=== PATIENT | female | born 1950 | race Caucasian/White ===

== ENCOUNTER 2025-06-01 14:04 | Inpatient (IN) ==
--- NOTE | 2025-06-01 14:11 | Emergency Department Note ---
Impression & Plan New onset atrial fibrillation, Atrial fibrillation with rapid ventricular response ED Provider Note NAME: GARY VELOZ AGE: 75 SEX: F : 1950 ARRIVES VIA: Ambulance INFORMANT: Patient, EMS ED PROVIDER(S): Priyank Marvin DO CHIEF COMPLAINT: palpitations HPI: This is a 75-year-old female with the PMHx of prediabetes, TR, anxiety/depression, HTN and HLD presenting to [facility] for further evaluation of new onset atrial fibrillation. Patient is accompanied by EMS who provide additional history. patient was discussed with EMS and prehospital medical commands by me. Patient was at her PCPs office for follow-up. Was having generalized fatigue and weakness as well as palpitations. Patient had an EKG that showed new onset atrial fibrillation with RVR. EMS was initially on use. She was given IV fluid resuscitation she was also ordered IV Cardizem push by me under medical command. Patient has remained hemodynamically stable and has subsequently converted to normal sinus rhythm per minute. EMS. She states she is feeling improved. Patient reports that she fell at the beginning of May. Patient reports that she did strike her knees and her right shoulder as well as her head. She has had ongoing headaches. Reports that she has ongoing right shoulder pain. States that she has a follow-up appointment with orthopedic surgery for tomorrow. They deny fever or chills. No cough or congestion. Denies chest pain. No shortness of breath. They deny abdominal pain, nausea and vomiting. No urinary complaints. No recent changes in bowel movements. Patient denies recent changes in medications or OTC supplements. Patient offers no other complaints, today. ADDITIONAL HISTORY OBTAINED: Per HPI Chronic Medical/Social Conditions Affecting Care: Per HPI PAST MEDICAL HISTORY: See Below PAST SURGICAL HISTORY: See Below FAMILY HISTORY: See Below SOCIAL HISTORY: See Below HOME MEDICATIONS: See Below ALLERGIES: See Below VITALS: See Below PHYSICAL EXAMINATION: GENERAL: Sitting up in bed, alert, well appearing, well nourished, no distress, non-toxic EYE EXAM: normal conjunctiva. PERRL and EOM's grossly intact. OROPHARYNX: no exudate, no erythema, lips, buccal mucosa, and tongue normal and mucous membranes are moist NECK: supple, no nuchal rigidity, no adenopathy, non-tender LUNGS: Clear to auscultation. Normal chest wall mechanics HEART: no murmurs, regular rate, regular rhythm ABDOMEN: abdomen soft, non-tender, no masses, no rebound or guarding. BACK: Back is symmetrical on inspection and there is no deformity, no midline tenderness, no CVA tenderness. SKIN: no rashes and no bruising UPPER EXTREMITIES: upper extremities are grossly normal. LOWER EXTREMITIES: No pitting edema. NEURO EXAM: Normal sensorium, GCS 15, normal speech, no gross weakness of arms, no gross weakness of legs. MEDICAL DECISION MAKING: Differential diagnoses includes but not limited to new onset atrial fibrillation, dysuria, ACS, electrolyte derangements, dehydration, intracranial hemorrhage, skull fracture, fracture, dislocation In summary, this is a 75 year old female who presented with new onset afib. Differential as above. Nursing notes and pertinent past medical records reviewed. Vital signs reviewed and the patient is mildly hypertensive but otherwise afebrile and hemodynamically stable. History and presentation revealed new onset atrial fibrillation without significant history. I personally took prehospital medical command on this patient. Patient had chest palpitations with lightheadedness. Was at her primary care office when she was diagnosed with new onset atrial fibrillation with RVR. Initial prehospital EKG independently interpreted by me reveals narrow complex tachycardia consistent with atrial fibrillation with RVR at a rate of [address] segment changes noted. No significant ST segment changes to suggest STEMI. Patient was given IV push 15 mg of Cardizem under my medical command. Patient subsequently converted to normal sinus rhythm. Second prehospital EKG reveals a normal sinus rhythm at a ventricular rate of [address] segment changes to suggest STEMI. Physical examination revealed no evidence of significant hypervolemia to suggest CHF. As a result of my initial evaluation, patient has new onset atrial fibrillation. [id number] scoring is 3 points. Will initiate anticoagulation. Apixaban will be sent to the patient's pharmacy for orourke check. Plan for laboratory evaluation as well as x-rays. Patient fell at the beginning of May. Still having ongoing headache as well as right shoulder pain. Dedicated plain films ordered as well as CT head. IV access was established and the patient was placed on CCRM. Therapeutics ordered include IVFR and PO Cardizem. Diagnostics interpreted by me include EKG and cardiac monitoring as listed below: -Cardiac Monitoring: An order was placed for continuous cardiac monitoring. The monitor shows a rate of 60-150s with irregular rhythm. -ECG: Normal sinus rhythm at a ventricular rate of 67 bpm. Sinus arrhythmia present. No significant ST segment changes to suggest STEMI. Intervals are within normal limits. -Repeat ECG: Atrial fibrillation at 98 bpm. No significant particular ST segment changes to suggest STEMI. Patient completed laboratory studies and imaging. CXR independently interpreted by me reveals no evidence of focal consolidation to suggest pna. No large pneumothorax or pleural effusion. No obvious displaced rib fracture. CTH independently interpreted by me reveals no evidence of ICH. No significant hydrocephalus. No major skull fractures. CTH does not demonstrate findings to suggest an etiology of the patient's symptoms or presentation, today. Plain films of the shoulder are unremarkable. Results independently interpreted by me are no leukocytosis or anemia. There is no significant electrolyte derangements or significant kidney dysfunction from baseline. No changes in LFTs. Normal troponin. She is euthyroid. The patient was managed with IVFR and Cardizem PO. She remained in NSR for the majority of her ED course. I extensive discussion with the patient regarding discharge and medications to include apixaban and Cardizem. Orourke check was performed and should cost the patient $0. [facility] was out of apixaban [facility]. Patient unfortunately went back into atrial fibrillation with RVR prior to discharge. Given second recurrence in the setting of new onset atrial fibrillation will request hospitalist admission. Patient was discussed with [facility] Hospitalist service and accepted for admission under Dr. Jones. Consults/Care Managements Discussions: Per [facility] ER treatment provided: See above Procedures: None Critical Care: None The chart was completed utilizing [employer] Speech voice recognition software. Grammatical errors, random word insertions, pronoun errors, and incomplete sentences are an occasional consequence of this system due to software limitations, ambient noise, and hardware issues. Any formal questions or concerns about the content, text, or information contained within the body of this dictation should be directly addressed to the physician for clarification. Past Med/Surg History Problem List (Updated 06/01/25 @ 17:31 by Priyank Marvin DO) Atrial fibrillation with rapid ventricular response (Acute) New onset atrial fibrillation (Acute) Social History Smoking Status: Never smoker Preferred Language: Syriac Feels Safe at Home: Yes Allergies Allergies Allergy/AdvReac Type Severity Reaction Status Date / Time No Known Allergies Allergy Mild Unverified 01/10/24 15:53 Home Meds Home Medications Medication Instructions Recorded Confirmed nabumetone 500 mg tablet 500 mg PO BID PRN Pain 06/01/25 06/01/25 rosuvastatin 20 mg tablet 20 mg PO HS 06/01/25 06/01/25 Previous Rx's Medication Instructions Recorded apixaban 5 mg tablet (Eliquis) 5 mg PO BID #60 tabs 06/01/25 diltiazem HCl 30 mg tablet 30 mg PO Q6H #90 tabs 06/01/25 (Cardizem) Results & Data (ED) Vital Signs Vital Signs - 24 hr 06/01/25 14:10 06/01/25 14:10 06/01/25 14:10 Temperature 36.3 C L Temperature Source Oral Pulse Rate 72 Pulse Rate [Apical] Pulse Rhythm [Apical] Pulse Strength [Apical] Respiratory Rate 20 20 Respiratory Effort / Characteristics Non-Labored Respiratory Depth Normal Respiratory Pattern Blood Pressure 184/104 H Blood Pressure [Right Arm] Blood Pressure Mean 130 Blood Pressure Mean [Right Arm] Blood Pressure Position [Right Arm] Pulse Oximetry 98 98 Oxygen Delivery Method Room Air Room Air Sepsis Recent Fever Within 48 Hours No Sepsis New/Unexplained Change in Mental Status Yes Sepsis Action Taken by Nursing No Action Required 06/01/25 14:10 06/01/25 14:20 06/01/25 14:50 Temperature Temperature Source Pulse Rate 69 Pulse Rate [Apical] 68 Pulse Rhythm [Apical] Pulse Strength [Apical] Respiratory Rate 20 Respiratory Effort / Characteristics Non-Labored Respiratory Depth Normal Respiratory Pattern Blood Pressure Blood Pressure [Right Arm] 191/104 H Blood Pressure Mean Blood Pressure Mean [Right Arm] 133 Blood Pressure Position [Right Arm] Pulse Oximetry 98 96 Oxygen Delivery Method Room Air Room Air Sepsis Recent Fever Within 48 Hours Sepsis New/Unexplained Change in Mental Status Sepsis Action Taken by Nursing 06/01/25 15:35 06/01/25 16:28 06/01/25 16:37 Temperature Temperature Source Pulse Rate Pulse Rate [Apical] 63 124 H 112 H Pulse Rhythm [Apical] Regular Irregular Pulse Strength [Apical] Normal Respiratory Rate 20 16 16 Respiratory Effort / Characteristics Non-Labored Respiratory Depth Normal Respiratory Pattern Regular Blood Pressure Blood Pressure [Right Arm] 150/91 H 149/103 H 133/94 Blood Pressure Mean Blood Pressure Mean [Right Arm] 110 118 107 Blood Pressure Position [Right Arm] Lying Pulse Oximetry 96 97 95 Oxygen Delivery Method Room Air Room Air Room Air Sepsis Recent Fever Within 48 Hours Sepsis New/Unexplained Change in Mental Status Sepsis Action Taken by Nursing Laboratory Data 06/01/25 14:30 06/01/25 14:30 Lab Results 06/01/25 Range/Units 14:30 WBC 8.57 (4.8-10.8) K/ul RBC 4.89 (4.20-5.40) M/uL Hgb 14.5 (12.0-16.0) g/dL Hct 43.4 (37.0-47.0) % MCV 88.8 (80.0-100.0) fL MCH 29.7 (25.0-34.0) pg MCHC 33.4 (32.0-36.0) g/dL RDW Std Deviation 41.7 (36.4-46.3) fL RDW Coeff of Adriano 12.8 (11.5-14.5) % Plt Count 273 (130-400) K/uL MPV 9.3 L (9.4-12.4) fL Immature Gran % (Auto) 0.5 % Neut % (Auto) 61.1 % Lymph % (Auto) 27.5 % [place] % (Auto) 8.2 % Eos % (Auto) 2.2 % Baso % (Auto) 0.5 % Neut # (Auto) 5.24 (1.40-6.50) K/uL Lymph # (Auto) 2.36 (1.20-3.40) K/uL [place] # (Auto) 0.70 H (0.11-0.59) K/uL Eos # (Auto) 0.19 (0.00-0.50) K/uL Baso # (Auto) 0.04 (0.00-0.20) K/uL Immature Gran # (Auto) 0.04 (0.01-0.20) K/uL Sodium 140 (136-145) mmol/L Potassium 4.1 (3.5-5.1) mmol/L Chloride 104 (98-107) mmol/L Carbon Dioxide 29 (21-32) mmol/L Anion Gap 7 (3-11) BUN 16 (6-23) mg/dl Creatinine 0.65 (0.6-1.2) mg/dl Est Cr Clr Drug Dosing 83.8 ml/min eGFR 92.33 BUN/Creatinine Ratio 24.6 H (10-20) Glucose 115 H (70-99(Fasting)) mg/dl Calcium 9.7 (8.6-10.3) mg/dl Magnesium 2.1 (1.7-2.4) mg/dl Total Bilirubin 0.3 (0.2-1.0) mg/dl AST 17 (13-39) U/L ALT 13 (7-52) U/L Alkaline Phosphatase 62 (34-104) U/L Troponin I High Sens 10.9 (0-14) pg/ml Total Protein 7.4 (6.0-8.3) gm/dl Albumin 4.0 (3.4-5.0) gm/dl Globulin 3.4 (2.5-4.0) gm/dl Albumin/Globulin Ratio 1.2 (0.9-2) Lipase 17 (11-82) U/L TSH 1.097 (0.300-4.500) uIu/ml Administered Medications Discontinued Medications Apixaban (Apixaban 5 Mg Tablet) 5 mg PO ONE ONE Stop: 06/01/25 15:52 Last Admin: 06/01/25 16:01 Dose: 5 mg Documented By: lesli Diltiazem HCl (Diltiazem Hcl 30 Mg Tab) 30 mg PO NOW ONE Stop: 06/01/25 14:32 Last Admin: 06/01/25 14:53 Dose: 30 mg Documented By: CYNDIE Diltiazem HCl (Diltiazem Hcl 5 Mg/Ml 5 Ml Vial) 15 mg IV NOW STA Stop: 06/01/25 16:15 Last Admin: 06/01/25 16:16 Dose: 15 mg Documented By: lesli Co-signed By: asm Diltiazem HCl (Diltiazem Hcl 5 Mg/Ml 5 Ml Vial) Confirm Administered Dose 25 mg IV .STK-MED ONE Stop: 06/01/25 16:16 Last Admin: 06/01/25 17:11 Dose: Not Given Documented By: lesli Parenteral Electrolytes (Plasma-Lyte A Ph 7.4) 500 mls @ 999 mls/hr IV .Q31M ONE Stop: 06/01/25 14:36 Last Infusion: 06/01/25 14:49 Dose: Infused Documented By: Admin: 06/01/25 14:21 Dose: 999 mls/hr Documented By: ES Imaging Data Radiologist's Impression: Chest X-Ray 06/01/25 14:06 SINGLE VIEW CHEST CLINICAL HISTORY: Chest pain FINDINGS: An AP, portable, upright chest radiograph is compared to study dated 01/07/2023. The heart is enlarged noting atherosclerotic calcification of the thoracic aorta. The pulmonary vasculature is noncongested. Chronic interstitial thickening similar to previous. There is mild bibasilar atelectasis. The lungs and pleural spaces are otherwise clear. No pneumothorax is seen. The skeletal structures are osteopenic. Degenerative change and scoliosis is noted in the spine. The bony thorax is grossly intact. IMPRESSION: Cardiomegaly with no active disease in the chest. ACT 112: Negative or not required by law. Electronically signed by: Darvin Yost M.D. 06/01/2025 3:[address] 06/01/25 14:18 CT SCAN OF THE BRAIN WITHOUT IV CONTRAST CLINICAL HISTORY: Headache. Falls. COMPARISON STUDY: None. TECHNIQUE: Unenhanced axial CT scan of the brain was performed from the vertex to the skull base. A dose lowering technique was utilized adhering to the principles of ALARA. CT DOSE: 547.75 mGy.cm FINDINGS: Brain parenchyma: No acute intracranial hemorrhage, midline shift or mass effect is present. Rouse-white matter differentiation is preserved. There are no extra- axial fluid collections. There are no findings to suggest acute dural sinus thrombosis or acute territorial infarct. White matter hypodensity suggests small vessel disease. Ventricles, sulci, cisterns: There is no hydrocephalus. The basal cisterns are patent. Calvarium: There are no calvarial fractures. Sinuses and mastoids: The visualized paranasal sinuses are clear. The mastoid air cells are well pneumatized. Orbits: The bony orbits are grossly intact. IMPRESSION: 1. No acute intracranial findings. 2. No calvarial fractures. ACT 112: Negative or not required by law. Electronically signed by: Emilio Flores M.D. 06/01/2025 3:30 PM Shoulder X-Ray 06/01/25 14:18 XR shoulder RT min 2V routine CLINICAL HISTORY: Right shoulder pain following fall. COMPARISON: None FINDINGS: Alignment of the right shoulder is anatomic. There are no acute fractures. Moderate degenerative changes within the acromioclavicular joint are noted with subacromial spurring. There is minimal spurring of the greater tuberosity. There is mild osteophytosis of the glenohumeral joint. IMPRESSION: No fracture or dislocation within the right shoulder. ACT 112: Negative or not required by law. Electronically signed by: Emilio Flores M.D. 06/01/2025 2:53 PM Discharge Plan Visit Data Chief Complaint: Tachycardia Stated Complaint: TACHYCARDIA, HTN ED Provider: Priyank Marvin Discharge Problem: New onset atrial fibrillation, Atrial fibrillation with rapid ventricular response Patient Disposition: Home - Self-Care Condition: Good Discharge Instructions Krames/Other Patient Handouts: Apixaban Oral Tablet, AFib Preventing Stroke, AFib, ED Atrial Fibrillation Activity Restrictions/Additional Instructions: You have been seen and evaluated in the Emergency Department of [facility]. Please read the discharge instructions below regarding your care. Summary Of Today's Visit: You were seen today for new onset atrial fibrillation. This is an abnormal heart rhythm. I need to follow-up with your PCP or auto club safety program coordinator. You are on 2 new medications as below. If you develop chest pain, worsening palpitations, shortness of breath, lower extremity swelling, episodes of passing out or any other symptoms you find alarming, you need to return to the emergency department. You will be on a blood thinner now. You need to be careful when you are walking and avoid all falls. If you fall, you need to report to the emergency department for further evaluation of internal injuries and significant anemia.. New Prescriptions/Medication Changes: Cardizem 30 mg four times daily Eliquis 5 mg daily estimated Follow Up/Continuation Of Care: PCP within [address] [facility] ([place] [address] [place] [address] Appointments: [phone] Operators are available 7 a.m. - 7 p.m. Saturday - Saturday and 7:30 a.m. - 4 p.m. Saturday and Saturday Other Important Information/Return Instructions: Please return if your symptoms worsen. Please return if you develop new and concerning symptoms including but not limited to fevers, chest pain, shortness of breath, altered mental status or any symptom you find alarming. The above instructions were reviewed with the patient/family/parents/POA/wholesale parts salesperson. Thank you for allowing us to care for you. Our goal is to provide you the best care. If you have any emergency needs in the future we will be glad to help you again. We are here to serve you! Priyank Marvin DO Forms Stand Alone Forms: My New [facility], Important Visit Information Prescriptions Prescriptions: New Eliquis 5 mg tablet 5 mg PO BID Qty: 60 0RF diltiazem HCl [Cardizem] 30 mg tablet 30 mg PO Q6H Qty: 90 0RF No Action nabumetone 500 mg tablet 500 mg PO BID PRN (Reason: Pain) rosuvastatin 20 mg tablet 20 mg PO HS Referrals Referrals: Gabriela Hunter DO [Primary Care Provider] -
[2025-06-01] MEDS: PLASMA-LYTE A 500 ML IV ONE (14:21)
[2025-06-01 14:44] LABS: Hematocrit (blood only) 43.4 % (37.0-47.0); Hemoglobin 14.5 g/dL (12.0-16.0); Immature Granulocytes # (auto) 0.04 K/uL (0.01-0.20); Immature Granulocytes % (auto) 0.5 %; Mean Corpuscular Hemoglobin 29.7 pg (25.0-34.0); Mean Corpuscular Volume 88.8 fL (80.0-100.0); Platelet Count 273 K/uL (130-400); RDW Standard Deviation 41.7 fL (36.4-46.3); Red Blood Count 4.89 M/uL (4.20-5.40); White Blood Count 8.57 K/ul (4.8-10.8)
--- NOTE | 2025-06-01 14:55 | XRay Report ---
XR shoulder RT min 2V routine CLINICAL HISTORY: Right shoulder pain following fall. COMPARISON: None FINDINGS: Alignment of the right shoulder is anatomic. There are no acute fractures. Moderate degene rative changes within the acromioclavicular joint are noted with subacromial spurring. There is minim al spurring of the greater tuberosity. There is mild osteophytosis of the glenohumeral joint. IMPRESSION: No fracture or dislocation within the right shoulder. ACT 112: Negative or not required by law. Electronically signed by: Emilio Flores M.D. 06/01/2025 2:53 PM
[2025-06-01 15:01] LABS: Alanine Aminotransferase 13.0 U/L (7-52); Albumin Globulin Ratio 1.2 (0.9-2); Albumin Level 4.0 gm/dl (3.4-5.0); Alkaline Phosphatase 62.0 U/L (34-104); Anion Gap 7.0 (3-11); Bilirubin,Total 0.3 mg/dl (0.2-1.0); Blood Urea Nitrogen 16.0 mg/dl (6-23); Calcium 9.7 mg/dl (8.6-10.3); Carbon Dioxide 29.0 mmol/L (21-32); Chloride 104.0 mmol/L (98-107); Creatinine Clr Calc Pharmacy 83.8 ml/min; Globulin 3.4 gm/dl (2.5-4.0); Glucose 115.0 mg/dl (70-99(Fasting)); Lipase 17.0 U/L (11-82); Magnesium 2.1 mg/dl (1.7-2.4); Potassium 4.1 mmol/L (3.5-5.1); Sodium 140.0 mmol/L (136-145); Total Protein 7.4 gm/dl (6.0-8.3)
--- NOTE | 2025-06-01 15:01 | XRay Report ---
SINGLE VIEW CHEST CLINICAL HISTORY: Chest pain FINDINGS: An AP, portable, upright chest radiograph is compared to study dated 01/07/2023. The heart i s enlarged noting atherosclerotic calcification of the thoracic aorta. The pulmonary vasculature is n oncongested. Chronic interstitial thickening similar to previous. There is mild bibasilar atelectasis . The lungs and pleural spaces are otherwise clear. No pneumothorax is seen. The skeletal structures are osteopenic. Degenerative change and scoliosis is noted in the spine. The bony thorax is grossly i ntact. IMPRESSION: Cardiomegaly with no active disease in the chest. ACT 112: Negative or not required by law. Electronically signed by: Darvin Yost M.D. 06/01/2025 3:00 PM
[2025-06-01 15:17] LABS: Thyroid Stimulating Hormone 1.097 uIu/ml (0.300-4.500)
--- NOTE | 2025-06-01 15:31 | CT Scan Report ---
CT SCAN OF THE BRAIN WITHOUT IV CONTRAST CLINICAL HISTORY: Headache. Falls. COMPARISON STUDY: None. TECHNIQUE: Unenhanced axial CT scan of the brain was performed from the vertex to the skull base. A dose lowering technique was utilized adhering to the principles of ALARA. CT DOSE: 547.75 mGy.cm FINDINGS: Brain parenchyma: No acute intracranial hemorrhage, midline shift or mass effect is present. Rouse-whi te matter differentiation is preserved. There are no extra-axial fluid collections. There are no find ings to suggest acute dural sinus thrombosis or acute territorial infarct. White matter hypodensity s uggests small vessel disease. Ventricles, sulci, cisterns: There is no hydrocephalus. The basal cisterns are patent. Calvarium: There are no calvarial fractures. Sinuses and mastoids: The visualized paranasal sinuses are clear. The mastoid air cells are well pneu matized. Orbits: The bony orbits are grossly intact. IMPRESSION: 1. No acute intracranial findings. 2. No calvarial fractures. ACT 112: Negative or not required by law. Electronically signed by: Emilio Flores M.D. 06/01/2025 3:30 PM
--- NOTE | 2025-06-01 16:00 | Pharmacy Report ---
ED Pharmacist Progress Note - ED Pharmacist Progress Note Date of Service:: June 01, 2025 Notes:: Called [facility] for a orourke check on apixaban. Co-pay is $0 but they won't have it in stock until tomorrow (Laila Cadet) at 3pm and they close at 5pm. Dr. Marvin discussed with the patient - [facility] [address]. I called [facility] [address] and they have it in stock. Dr. Marvin to send a new Rx. I called [facility] and provided verbal authorization to cancel the original apixaban Rx. Ángel acknowledged understanding.
[2025-06-01] MEDS: APIXABAN 5 MG TABLET PO ONE (16:01)
--- NOTE | 2025-06-01 16:29 | History & Physical Report ---
Date of Service June 01, 2025 Assessment & Plan (1) New onset atrial fibrillation: (2) Atrial fibrillation with rapid ventricular response: (3) Sinus pause: (4) Tachy-delia syndrome: Plan Patient is a 75-year-old female with past medical history significant for HTN, prediabetes, HLD, mild tricuspid regurgitation, microalbuminuria, chronic neck and back pain and depression who was brought into the ED via EMS from her PCP's office after she was found to be in new-onset Afib with RVR. S/p 15mg IV Cardizem en route to ED with successful conversion back into NSR. Was started on Eliquis in the ED and given 30mg po Cardizem. HR improved to the 60s-70s initially. Plan was for the patient to be discharged home on Eliquis and Cardizem; however, upon reevaluation for her discharge exam, the patient reverted back into Afib with HR in the 160s. As a result, our service was called to admit the patient for further management. New-onset Afib with RVR with occasional pauses and tachybradycardia syndrome Had fall about 2wk ago with (+) head strike, thankfully head CT unremarkable. TSH WNL. CXR with cardiomegaly but otherwise grossly unremarkable. Occasional sinus pauses, tachybrady syndrome appreciated on tele in ED. Case discussed with cards >> recommends starting low-dose Cardizem gtt, continue Eliquis. Pacer pads applied given sinus pauses. HTN: Not currently on antiHTN meds. HLD: Check AM lipid panel. Continue statin therapy. Prediabetes: Hgb A1c 6.3% 5d ago as per records. Monitor off SSI protocol for now; BSG checks ACHS. DVT Prophylaxis: Eliquis Code Status: FULL CODE Disposition: Observation in PCU Patient seen in collaboration with Dr. Jones. Please see addendum. I spent a total of 68 minutes coordinating, documenting, and providing care for this patient excluding time spent in the performance of separately billed services or time spent by another provider/QHP. This included personally reviewing all current laboratories and imaging studies, medical reconciliation, outpatient chart review and discussion with specialists. History of Present Illness Chief Complaint: Referred by PCP: New onset A-fib with RVR Primary Care Provider: Gabriela Hunter DO Patient is a 75-year-old female with past medical history significant for HTN, prediabetes, HLD, mild tricuspid regurgitation, microalbuminuria, chronic neck and back pain and depression who was brought into the ED via EMS from her PCP's office after she was found to be in new-onset Afib with RVR. Seen by PCP earlier today for annual wellness visit. Was found to be markedly hypertensive and tachycardic in the office with HR in the 150s. EKG was completed which revealed Afib with RVR. New-onset. Did sustain a fall with positive head strike on 05/21/25 after tripping over a bed frame. Admitted to feeling a bit shaky in the office however denied any palpitations or other cardiopulmonary complaints. S/p 15mg IV Cardizem en route to ED with successful conversion back into NSR. Was started on Eliquis in the ED and given 30mg po Cardizem. HR improved to the 60s-70s initially. Plan was for the patient to be discharged home on Eliquis and Cardizem; however, upon reevaluation for her disc harge exam, the patient reverted back into Afib with HR in the 160s. As a result, our service was called to admit the patient for further management. At time of my evaluation, patient remains in Afib with variable HR between 100s- 160s. Hypertensive with BP in the 150s/110s. Patient admits to feeling somewhat shaky over the past couple of days. Denies any lightheadedness or dizziness. Does mention feeling some intermittent "fluttering" in her chest over the past few days as well. No reported chest pain or SOB. Denies any abdominal pain, N/V. No urinary or bowel habit changes. No recorded fevers. No known sick contacts; denies any chest congestion, runny nose or cough. Allergies Allergy/AdvReac Type Severity Reaction Status Date / Time No Known Allergies Allergy Mild Unverified 01/10/24 15:53 Home Medications Medication Instructions Recorded Confirmed Type apixaban 5 mg tablet (Eliquis) 5 mg PO BID #60 tabs 06/01/25 06/01/25 Rx diltiazem HCl 30 mg tablet 30 mg PO Q6H #90 tabs 06/01/25 06/01/25 Rx (Cardizem) nabumetone 500 mg tablet 500 mg PO BID PRN Pain 06/01/25 06/01/25 History rosuvastatin 20 mg tablet 20 mg PO HS 06/01/25 06/01/25 History Past Med/Surg History Problem List (Updated 06/01/25 @ 19:21 by Elisa Arnett PA-C) Tachy-delia syndrome Sinus pause Atrial fibrillation with rapid ventricular response (Acute) New onset atrial fibrillation (Acute) Social History Smoking Status: Never smoker Preferred Language: Malian Feels Safe at Home: Yes Review of Systems Review of Systems: At least ten systems reviewed and negative, except as noted in the HPI. Physical Exam Physical Exam: General: Elderly F, NAD, sitting up in bed, A&Ox3, pleasant HEENT: Normocephalic, atraumatic, oropharynx normal Respiratory: Normal respiratory effort, CTAB Cardiovascular: Tachycardic rate, irregularly irregular rhythm, no BLE edema Abdomen/GI: Normal bowel sounds, soft, nontender to palpation in all quadrants Extremities/Musculoskeletal: No cyanosis or clubbing, extremities motor strength intact, moves all extremities Neurologic: No overt focal deficits, CN's II-XI not formally tested but appear grossly intact bilaterally Results & Data Results & Data Vital Signs (Past 12 Hours) Vital Signs Temp Pulse Pulse Resp BP BP Pulse Ox 06/01/25 15:35 63 20 150/91 H 96 06/01/25 14:50 68 20 191/104 H 96 06/01/25 14:20 69 06/01/25 14:10 98 06/01/25 14:10 20 06/01/25 14:10 98 06/01/25 14:10 36.3 C L 72 20 184/104 H 98 O2 Del Method 06/01/25 15:35 Room Air 06/01/25 14:50 Room Air 06/01/25 14:20 06/01/25 14:10 Room Air 06/01/25 14:10 06/01/25 14:10 Room Air 06/01/25 14:10 Room Air Laboratory Results Short CBC 06/01/25 Range/Units 14:30 WBC 8.57 (4.8-10.8) K/ul Hgb 14.5 (12.0-16.0) g/dL Hct 43.4 (37.0-47.0) % Plt Count 273 (130-400) K/uL BMP 06/01/25 14:30 Sodium 140 Potassium 4.1 Chloride 104 Carbon Dioxide 29 BUN 16 Creatinine 0.65 Glucose 115 H Calcium 9.7 Liver Function 06/01/25 Range/Units 14:30 Total Bilirubin 0.3 (0.2-1.0) mg/dl AST 17 (13-39) U/L ALT 13 (7-52) U/L Alkaline Phosphatase 62 (34-104) U/L Albumin 4.0 (3.4-5.0) gm/dl Diagnostic Findings Chest X-Ray 06/01/25 14:06 SINGLE VIEW CHEST CLINICAL HISTORY: Chest pain FINDINGS: An AP, portable, upright chest radiograph is compared to study dated 01/07/2023. The heart is enlarged noting atherosclerotic calcification of the thoracic aorta. The pulmonary vasculature is noncongested. Chronic interstitial thickening similar to previous. There is mild bibasilar atelectasis. The lungs and pleural spaces are otherwise clear. No pneumothorax is seen. The skeletal structures are osteopenic. Degenerative change and scoliosis is noted in the spine. The bony thorax is grossly intact. IMPRESSION: Cardiomegaly with no active disease in the chest. ACT 112: Negative or not required by law. Electronically signed by: Darvin Yost M.D. 06/01/2025 3:[address] 06/01/25 14:18 CT SCAN OF THE BRAIN WITHOUT IV CONTRAST CLINICAL HISTORY: Headache. Falls. COMPARISON STUDY: None. TECHNIQUE: Unenhanced axial CT scan of the brain was performed from the vertex to the skull base. A dose lowering technique was utilized adhering to the principles of ALARA. CT DOSE: 547.75 mGy.cm FINDINGS: Brain parenchyma: No acute intracranial hemorrhage, midline shift or mass effect is present. Rouse-white matter differentiation is preserved. There are no extra- axial fluid collections. There are no findings to suggest acute dural sinus thrombosis or acute territorial infarct. White matter hypodensity suggests small vessel disease. Ventricles, sulci, cisterns: There is no hydrocephalus. The basal cisterns are patent. Calvarium: There are no calvarial fractures. Sinuses and mastoids: The visualized paranasal sinuses are clear. The mastoid air cells are well pneumatized. Orbits: The bony orbits are grossly intact. IMPRESSION: 1. No acute intracranial findings. 2. No calvarial fractures. ACT 112: Negative or not required by law. Electronically signed by: Emilio Flores M.D. 06/01/2025 3:30 PM Shoulder X-Ray 06/01/25 14:18 XR shoulder RT min 2V routine CLINICAL HISTORY: Right shoulder pain following fall. COMPARISON: None FINDINGS: Alignment of the right shoulder is anatomic. There are no acute fractures. Moderate degenerative changes within the acromioclavicular joint are noted with subacromial spurring. There is minimal spurring of the greater tuberosity. There is mild osteophytosis of the glenohumeral joint. IMPRESSION: No fracture or dislocation within the right shoulder. ACT 112: Negative or not required by law. Electronically signed by: Emilio Flores M.D. 06/01/2025 2:53 PM Medications Administered Discontinued Medications Apixaban (Apixaban 5 Mg Tablet) 5 mg PO ONE ONE Stop: 06/01/25 15:52 Last Admin: 06/01/25 16:01 Dose: 5 mg Documented By: lesli Diltiazem HCl (Diltiazem Hcl 30 Mg Tab) 30 mg PO NOW ONE Stop: 06/01/25 14:32 Last Admin: 06/01/25 14:53 Dose: 30 mg Documented By: CYNDIE Diltiazem HCl (Diltiazem Hcl 5 Mg/Ml 5 Ml Vial) 15 mg IV NOW STA Stop: 06/01/25 16:15 Last Admin: 06/01/25 16:16 Dose: 15 mg Documented By: lesli Co-signed By: nitin Parenteral Electrolytes (Plasma-Lyte A Ph 7.4) 500 mls @ 999 mls/hr IV .Q31M ONE Stop: 06/01/25 14:36 Last Infusion: 06/01/25 14:49 Dose: Infused Documented By: Admin: 06/01/25 14:21 Dose: 999 mls/hr Documented By: CYNDIE Supervising Physician Co-Signing Physician Notes Patient seen and examined at bedside. patient presenting to the ED with palpitations. Was going to leave ED but rate got worse right before discharge. Other than palpitations minimal other symptoms. On exam, tachycardic and irregular rhythm. TSH within normal limits, no leukocytosis, creatinine at baseline. Patient presenting with new onset atrial fibrillation with RVR, with occasional pauses and tachybradycardia syndrome. Discussed case personally with cardiology over the phone who recommends starting a low-dose Cardizem drip, which has been done. Continue Eliquis. Check A1c and lipid panel for completing metabolic workup. Pacer pads placed given pauses noted on telemetry. I have seen and discussed the case with the collaborating advanced practitioner. I agree with the above H&P. I have reviewed and confirmed the patients medical history, the findings on physical examination, and the patients diagnosis and treatment plan with Melquiades BECK and agree with the information documented. I spent a total of 40 minutes coordinating, documenting, and providing care for this patient excluding time spent in the performance of separately billed services. All of the aforementioned completed outside of collaborating with the assigned advanced practitioner for a full treatment plan. I have reviewed the advanced practitioner's documentation, and I agree with, and take responsibility for the plan of care
[2025-06-01] MEDS ORDERED: STAT IV Infusion **Titration per Protocol STA (17:27)
[2025-06-01 17:31] LABS: Cholesterol 181.0 mg/dl (0-200); HDL Cholesterol 61.0 mg/dl; Triglycerides 210.0 mg/dl (0-150)
--- NOTE | 2025-06-01 18:54 | Electrocardiogram Report ---
Test Reason : Blood Pressure : */* mmHG Vent. Rate : 67 BPM Atrial Rate : 67 BPM P-R Int : 140 ms QRS Dur : 76 ms QT Int : 392 ms P-R-T Axes : 65 -16 44 degrees QTcB Int : 414 ms Normal sinus rhythm with sinus arrhythmia Minimal voltage criteria for LVH, may be normal variant Borderline ECG When compared with ECG of 07-Jan-2023 11:27, No significant change was found Confirmed by Ananth Sands ([id number]) on 06/01/2025 6:54:07 PM Referred By: Confirmed By: Ananth Sands
[2025-06-01] MEDS ORDERED: POLYETHYLENE (MIRALAX) 17 GM PACK PO PRN (19:40)
[2025-06-01] MEDS ORDERED: ONDANSETRON INJ 2 MG/ML 2 ML VIAL IV PRN (19:40)
[2025-06-01] MEDS ORDERED: MAGNESIUM HYDROXIDE SUSP 30 ML UDC PO PRN (19:40)
[2025-06-01] MEDS: APIXABAN 5 MG TABLET PO SCH (22:04)
[2025-06-01] MEDS: ROSUVASTATIN CALCIUM 20 MG TAB PO SCH (22:04)
[2025-06-01] MEDS: ACETAMINOPHEN 325 MG TAB PO PRN (22:55)
[2025-06-02] MEDS: DICLOFENAC SOD 1% GEL 100 GM TUBE EXT PRN (01:54)
[2025-06-02 06:35] LABS: Hematocrit (blood only) 41.8 % (37.0-47.0); Hemoglobin 13.5 g/dL (12.0-16.0); Mean Corpuscular Hemoglobin 28.8 pg (25.0-34.0); Mean Corpuscular Volume 89.3 fL (80.0-100.0); Platelet Count 277 K/uL (130-400); RDW Standard Deviation 43.4 fL (36.4-46.3); Red Blood Count 4.68 M/uL (4.20-5.40); White Blood Count 7.37 K/ul (4.8-10.8)
[2025-06-02 07:47] LABS: Anion Gap 9 (3-11); Blood Urea Nitrogen 16 mg/dl (6-23); Calcium 9.1 mg/dl (8.6-10.3); Carbon Dioxide 26 mmol/L (21-32); Chloride 105 mmol/L (98-107); Cholesterol 166 mg/dl (0-200); Creatinine Clr Calc Pharmacy 75.2 ml/min; Glucose 117 mg/dl (70-99(Fasting)); HDL Cholesterol 51 mg/dl; Magnesium 2.1 mg/dl (1.7-2.4); Sodium 140 mmol/L (136-145); Triglycerides 182 mg/dl (0-150)
[2025-06-02 08:24] LABS: Hemoglobin A1C 6.1 % (4.5-5.6)
--- NOTE | 2025-06-02 08:43 | Hospitalist Progress Note ---
Date of Service June 02, 2025 Assessment & Plan (1) New onset atrial fibrillation: (2) Atrial fibrillation with rapid ventricular response: (3) Sinus pause: (4) Tachy-delia syndrome: Plan Patient is a 75-year-old female with past medical history significant for HTN, prediabetes, HLD, mild tricuspid regurgitation, microalbuminuria, chronic neck and back pain and depression who was brought into the ED via EMS from her PCP's office on 06/01/2025 after she was found to be in new-onset Afib with RVR. New-onset Afib with RVR with occasional pauses and tachybradycardia syndrome Referred by PCP for new onset A fib with RVR at office EKG in ED revealed NSR after 15mg IV Cardizem with EMS Labs unremarkable, CXR negative Received Eliquis and oral Cardizem in ED Converted back to Afib with rates in 160s Started on Cardizem drip-> to be discontinued and oral antiarrhythmic therapy to start per Cardiology TTE revealed EF 55-60%, grade 1 diastolic dysfunction, mild AR, mild TR Continue Eliquis Patient will need outpatient electrophysiology and ALICIA evals Hyperlipidemia Chol 166, LDL 79, HDL 51, TG 182 Continue rosuvastatin Prediabetes A1C 6.1% BSG checks ACHS DVT Prophylaxis: on Eliquis Code Status: FULL CODE PCP: Gabriela Hunter Disposition: dc to home when medically ready Patient seen in collaboration with Dr. Gomez. Please see addendum. I spent a total of 60 minutes coordinating, documenting and providing care for this patient excluding time spent in the performance of separately billed services or time spent by another provider/QHP. Admission and Anticipated Discharge Date Admission Date: June 01, 2025 Supervising Physician Co-Signing Physician Notes Attending addendum: The patient was seen and examined in telemetry unit She was admitted with symptomatic atrial fibrillation with RVR. She has been on Cardizem drip with rate under control Denies any significant symptoms On examination lying in bed without any acute distress Hemodynamically stable with blood pressure at 147/80 and heart rate 59 irregularly irregular Chestclear with minimal bibasilar rales HeartS1-S2, irregular with 2/6 ESM over precordium Abdomendistended, otherwise benign Extremitiesno edema CNSalert, awake and oriented x 3 and no focal sensory or motor deficit appreciated Her labs, EKG and imaging studies reviewed Atrial fibrillation with RVR and noted to have conversion pauses of up to 4 seconds and likely has Tachybradycardia syndrome No ACS and echo of the heart showed normal LV systolic function LVEF 55 to 60%, grade 1 diastolic dysfunction, mild aortic regurgitation and mild tricuspid regurgitation Appreciate cardiology evaluation and possible pharmacotherapy for rapid heart rate Started on Eliquis and the patient will need to be evaluated by outbound sales consultant as an outpatient Agree with assessment plan as outlined above by THOMAS Rand and take the full responsibility of care in the hospital I spent a total of 25 minutes examining the patient, reviewing the chart and medications and also planning of care Dr Scar Gomez Subjective Patient seen resting in bed Reports no dizziness, chest pain, palpitations, SOB, abdominal pain, N/V Review of Systems Review of Systems: All systems reviewed & are unremarkable except as noted in HPI & below Physical Exam Physical Exam: General/Psych: obese, sitting up in bed, NAD, conversing easily Head: normocephalic, atraumatic Eyes: normal inspection, PERRL, conjunctivae pink Neck: normal visual inspection, trachea midline Respiratory: normal respiratory effort, lungs clear to auscultation, no wheeze/rales/rhonchi, no accessory muscle use Cardiovascular: regular rate and rhythm, +murmur Extremities: no cyanosis or clubbing, normal peripheral pulses, no BLE edema Abdomen/GI: normal bowel sounds, soft, nontender Neurologic/MSK: A+Ox3, motor strength 5/5, moves all extremities Skin: no rashes, normal color, warm and dry Results & Data Results & Data Vital Signs (Past 12 Hours) Vital Signs Temp Pulse Pulse Resp BP Pulse Ox O2 Del Method 06/02/25 06:27 120 H 145/82 H 06/02/25 05:20 63 110/71 06/02/25 04:00 63 132/79 06/02/25 03:13 60 122/87 06/02/25 03:00 36.9 C 86 20 130/78 92 Room Air 06/02/25 02:00 62 127/79 06/02/25 02:00 62 127/79 06/02/25 00:21 66 114/73 06/01/25 23:05 36.6 C 102 H 20 124/79 95 Room Air 06/01/25 23:00 Room Air 06/01/25 22:56 73 124/79 06/01/25 21:45 61 20 148/82 H 06/01/25 21:27 36.4 C L 117 H 22 159/102 H 95 Room Air 06/01/25 20:42 36.4 C L 117 H 18 159/102 H 95 Room Air Laboratory Results Short CBC 06/01/25 06/02/25 Range/Units 14:30 05:55 WBC 8.57 7.37 (4.8-10.8) K/ul Hgb 14.5 13.5 (12.0-16.0) g/dL Hct 43.4 41.8 (37.0-47.0) % Plt Count 273 277 (130-400) K/uL BMP 06/01/25 06/02/25 06/02/25 14:30 05:55 08:52 Sodium 140 140 Potassium 4.1 TNP 3.9 Chloride 104 105 Carbon Dioxide 29 26 BUN 16 16 Creatinine 0.65 0.72 Glucose 115 H 117 H Calcium 9.7 9.1 Liver Function 06/01/25 Range/Units 14:30 Total Bilirubin 0.3 (0.2-1.0) mg/dl AST 17 (13-39) U/L ALT 13 (7-52) U/L Alkaline Phosphatase 62 (34-104) U/L Albumin 4.0 (3.4-5.0) gm/dl I have independently reviewed and interpreted patient's labs including CBC, BMP, mag, lipid panel Medications Administered Current Inpatient Medications Acetaminophen (Acetaminophen 325 Mg Tab) 650 mg PO Q4H PRN PRN Reason: Pain or Fever Stop: 07/01/25 19:39 Last Admin: 06/02/25 03:41 Dose: 650 mg Apixaban (Apixaban 5 Mg Tablet) 5 mg PO BID TAYLER Stop: 07/01/25 20:59 Last Admin: 06/02/25 09:47 Dose: 5 mg Diclofenac Sodium (Diclofenac Sod 1% Gel 100 Gm Tube) 2 gm EXT BID PRN; Protocol PRN Reason: shoulder pain Stop: 07/01/25 22:59 Last Admin: 06/02/25 01:54 Dose: 2 gm Diltiazem HCl 125 mg/ Dextrose 125 mls @ 5 mls/hr IV .Q24H TAYLER; Protocol Stop: 07/01/25 17:29 Last Titration: 06/01/25 19:56 Dose: 5 mg/hr, 5 mls/hr Magnesium Hydroxide (Magnesium Hydroxide Susp 30 Ml Udc) 30 ml PO Q12H PRN PRN Reason: Constipation Stop: 07/01/25 19:39 Ondansetron HCl (Ondansetron Inj 2 Mg/Ml 2 Ml Vial) 4 mg IV Q6H PRN PRN Reason: Nausea Stop: 07/01/25 19:39 Polyethylene Glycol (Polyethylene (Miralax) 17 Gm Pack) 17 gm PO DAILY PRN PRN Reason: Constipation Stop: 07/01/25 19:39 Rosuvastatin Calcium (Rosuvastatin Calcium 20 Mg Tab) 20 mg PO HS TAYLER Stop: 07/01/25 20:59 Last Admin: 06/01/25 22:04 Dose: 20 mg
--- NOTE | 2025-06-02 09:44 | Cardiology Consultation ---
Date of Consultation June 02, 2025 Assessment & Plan (1) Paroxysmal atrial fibrillation with conversion pauses: (2) Tachy-ed syndrome: (3) Hypertension: (4) Dyslipidemia: (5) Family history of ischemic heart disease: (6) Suspected sleep apnea: Plan 75-year-old female admitted to [facility] on June 01, 2025 with symptomatic paroxysmal atrial flutter/fibrillation with rapid ventricular response, telemetry revealing paroxysmal atrial flutter/fibrillation with conversion pauses up to 4 seconds in duration. Paroxysmal atrial fibrillation, Tachy-Ed Syndrome, and options of management discussed with patient notably adverse to pacemaker implantation. [id number] Score at least 4 points. Recommendations: * Maintain telemetry while hospitalized. * Refer for resting echocardiography * Check a magnesium level * Transition Cardizem drip to antiarrhythmic therapy, ? dronedarone * Outpatient Electrophysiology evaluation. * termination clerk anticoagulation with apixaban (Eliquis) 5 mg twice a day * Discontinue Carisoprodol (Soma) * Discontinue Nabumetone, avoid NSAID's * Outpatient evaluation for sleep apnea. * Risk factor and lifestyle modification Supervising Physician Co-Signing Physician Notes Patient seen and examined. Past medical history, surgical history, social history and family history have been reviewed. The medical record and all the above studies have been reviewed. Case DW BRAULIO including management. PAF with RVR -> NSR HTN - uncontrolled -> better s/p mechanical fall HLD Obesity Sleep Apnea Recommendation: Eliquis 5mg po bid Start Multaq DC IV cardizem start Losartan Cont statin correct and f/u electrolytes f/u renal function ECHO - no WMA, Normal LVEF, Gd I LVDD adjust anti-HTN meds keeping systolic BP between 100-140 mmHg keep patient euvolemic DVT prophylaxis keep LE elevated when sitting salt restriction counseling History of Present Illness Reason for Consultation: New onset atrial fibrillation with rapid ventricular response Requesting Physician: [facility] Hospitalist Service, Elisa Arnett Attending Physician: [facility] Hospitalist Service, Dr. Andrae Gomez MD History of Present Illness Nona Licona is a 75-year-old female who suffered a mechanical fall on May 21, 2025, tripping over an empty bed frame, hitting her head on the wall, right shoulder, left lower extremity. Since that time she has been taking the muscle relaxer Soma, ibuprofen, and acetaminophen as needed for pain and soreness. On June 01, 2025 she traveled to [facility] for annual wellness visit with her primary care provider Dr. Hunter. She describes feeling a little shaky and odd. Hypertension and tachycardia observed with EKG revealing new onset atrial flutter/fibrillation with a rapid ventricular response with diffuse ST depression possible old anterolateral infarct. QTc was 481 ms. Emergency medical services were summoned with patient transported to the [facility] ER. In route patient was given 15 mg of IV Cardizem with conversion to sinus rhythm. Blood pressure on presentation to the ER was as high as 191/104. Initial plans were for discharge to home from the ER with oral Cardizem as well as Eliquis anticoagulation, unfortunately reverting back to atrial fibrillation with rapid ventricular response. Patient was subsequently admitted to the hospital for further evaluation/management. On admission patient was prescribed Cardizem drip at 5 mg/h. Continuous telemetry monitoring since admission demonstrates episodes of paroxysmal atrial fibrillation/flutter with rapid ventricular response with conversion pauses up to 4 seconds in duration. Blood pressures have improved, normalized. High-sensitivity troponin negative x 1 at 10.9 pg/mL. CBC within normal range. Potassium 4.1 and then 3.9. TSH normal at 1.097. Patient denies prior cardiac history. She specifically denies history of MA, CAD, CHF, arrhythmia, heart murmur, rheumatic fever, or scarlet fever. She recalls undergoing what she describes as a "test for blockages" years ago which appears to be resting echocardiography in March 2018. Echocardiography at that time revealed a mildly dilated RV cavity with normal RV function by TAPSE, normal LV size and function, EF 60 to 64%, grade 1 diastolic dysfunction, estimated PASP of 30 mmHg. Past Medical and Surgical History: Hypertension Dyslipidemia Prediabetes with microalbuminuria Chronic neck and back pain Depression Stress incontinence Fibrocystic breast disease Status post bilateral knee replacements Family History: Mother with CAD, MA at 67, passing with CHF at the age of 86. Father with what sounds like a CVA at the age of 53. Paternal grandfather with a CVA at the age of 73. Brother with an MA at 51, passing related with cancer. Sister with history of pulmonary emboli. Social History: Never smoker. No smokeless tobacco. No alcohol. No illegal drug use. 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 No children. 6 cats. 1 dog. Lives in [place]. Allergies Allergy/AdvReac Type Severity Reaction Status Date / Time No Known Allergies Allergy Mild Unverified 01/10/24 15:53 Home Medications Medication Instructions Recorded Confirmed Type apixaban 5 mg tablet (Eliquis) 5 mg PO BID #60 tabs 06/01/25 06/01/25 Rx diltiazem HCl 30 mg tablet 30 mg PO Q6H #90 tabs 06/01/25 06/01/25 Rx (Cardizem) nabumetone 500 mg tablet 500 mg PO BID PRN Pain 06/01/25 06/01/25 History rosuvastatin 20 mg tablet 20 mg PO HS 06/01/25 06/01/25 History Patient History Social History Smoking Status: Never smoker Hx Alcohol Use: No Hx Substance Use: No Preferred Language: Lebanese Communication Ability: Effective Sr. Manager Marketing Required: No Beliefs That Will Affect Care: None Current Living Situation: Alone Feels Safe at Home: Yes Safety Concerns: Feels Safe At This Time Assistive Devices: None Review of Systems Review of Systems: Complete Review of Systems: Constitutional: No fevers, chills, or night sweats. HEENT: Headaches since the fall, chronically with occasional headaches. Glasses. No history of cataracts, macular degeneration, or glaucoma. No history of amaurosis fugax. Pulmonary: No history of asthma, emphysema, COPD, or sleep apnea. No history of PE. Cardiac: See above. GI/Abd: No dysphagia. No GERD. No melana or hematochezia. Denies kidney problems. Denies liver problems. Denies pancreatic issues. Vascular: No history of carotid artery disease, AAA, or lower extremity claudi cation/PAD. Hematologic: No coagulation disorder, anemia, or abnormal bleeding. Musculoskeletal: 2 herniated disks in the neck. Sees chiropractor regularly. Skin: No rash. Neurologic: Denies history of TIA/CVA. Denies history of seizure. Female : Incontinence Endocrine: Prediabetes. Denies thyroid trouble. Complete Review of Systems is as stated above, negative, or noncontributory Physical Exam Physical Exam: General: A&Ox3. NAD. Elevated BMI HENT: Normocephalic. Atraumatic. Eyes: PER. Conjunctiva pink, sclera clear. Neck: No carotid bruits. No JVD. No HJR. Heart: Regular at 76 bpm. Grade II/ systolic ejection murmur. No diastolic murmur. Lungs: Clear to auscultation. No wheeze. Abdomen: +BS. Soft. Nontender. No masses or organomegaly. Extremities: Mild edema. No clubbing. No cyanosis. Limited neurological examination is without focal deficits. Pulses: Posterior tibial=2/4. Results & Data Vital Signs (Past 12 Hours) Vital Signs Temp Pulse Pulse Resp BP Pulse Ox O2 Del Method 06/02/25 08:00 36.5 C 71 18 129/70 94 Room Air 06/02/25 06:27 120 H 145/82 H 06/02/25 05:20 63 110/71 06/02/25 04:00 63 132/79 06/02/25 03:13 60 122/87 06/02/25 03:00 36.9 C 86 20 130/78 92 Room Air 06/02/25 02:00 62 127/79 06/02/25 02:00 62 127/79 06/02/25 00:21 66 114/73 06/01/25 23:05 36.6 C 102 H 20 124/79 95 Room Air 06/01/25 23:00 Room Air 06/01/25 22:56 73 124/79 06/01/25 21:45 61 20 148/82 H Laboratory Results Cardiac Enzymes 06/01/25 Range/Units 14:30 AST 17 (13-39) U/L Troponin I High Sens 10.9 (0-14) pg/ml Lipids 06/01/25 06/02/25 Range/Units 14:30 05:55 Triglycerides 210 H 182 H (0-150) mg/dl Cholesterol 181 166 (0-200) mg/dl HDL Cholesterol 61 51 mg/dl Cholesterol/HDL Ratio 3.0 3.3 (0-5) CBC 06/01/25 06/02/25 Range/Units 14:30 05:55 WBC 8.57 7.37 (4.8-10.8) K/ul RBC 4.89 4.68 (4.20-5.40) M/uL Hgb 14.5 13.5 (12.0-16.0) g/dL Hct 43.4 41.8 (37.0-47.0) % Plt Count 273 277 (130-400) K/uL Neut # (Auto) 5.24 (1.40-6.50) K/uL Lymph # (Auto) 2.36 (1.20-3.40) K/uL King # (Auto) 0.70 H (0.11-0.59) K/uL Eos # (Auto) 0.19 (0.00-0.50) K/uL Baso # (Auto) 0.04 (0.00-0.20) K/uL Comprehensive Metabolic Panel 06/01/25 06/02/25 06/02/25 Range/Units 14:30 05:55 08:52 Sodium 140 140 (136-145) mmol/L Potassium 4.1 TNP 3.9 (3.5-5.1) mmol/L Chloride 104 105 (98-107) mmol/L Carbon Dioxide 29 26 (21-32) mmol/L BUN 16 16 (6-23) mg/dl Creatinine 0.65 0.72 (0.6-1.2) mg/dl Glucose 115 H 117 H (70-99(Fasting)) mg/dl Calcium 9.7 9.1 (8.6-10.3) mg/dl AST 17 (13-39) U/L ALT 13 (7-52) U/L Alkaline Phosphatase 62 (34-104) U/L Total Protein 7.4 (6.0-8.3) gm/dl Albumin 4.0 (3.4-5.0) gm/dl Intake and Output 06/01/25 06/02/25 06/02/25 22:59 06:59 14:59 Intake Total 2.333 / 502.333 Output Total 1000 / 1000 Balance -997.667 / -497.667 Intake: IV 2.333 / 502.333 dilTIAZem HCL 125 mg In 2.333 / 2.333 Dextrose 5% 100 ml @ 5 MG/HR 5 mls/hr IV .Q24H [facility] Rx#: [id number] Output: Urine 1000 / 1000 Other: Other Intake Source NPO Weight 95.254 kg 95.2 kg Weight Measurement Method [facility] Diagnostic Findings Chest x-ray with cardiomegaly, without active disease, notable for a therosclerotic calcification in the thoracic aorta, chronic interstitial thickening, bibasilar atelectasis, osteopenic skeletal structures with degenerative change and scoliosis. June 01, 2025 EKG: Normal sinus rhythm at 67 bpm, with sinus arrhythmia, LVH. QTc 414 ms. Telemetry: Paroxysmal atrial fibrillation with conversion pauses up to 4 seconds in duration. PG Care Time/CCT Total # of Minutes Spent Total Time Spent with Patient: Total time spent is greater than 50% in coordination of care (as documented) at patient's floor/unit and/or counseling patient: Coding Level of Care Code 21700 INT INP/OBS CARE 3MIN Diagnoses Paroxysmal atrial fibrillation with conversion pauses I48.0; I49.5 Tachy-ed syndrome I49.5 Hypertension I10 Dyslipidemia E78.5 Family history of ischemic heart disease Z82.49 Suspected sleep apnea R29.818
--- NOTE | 2025-06-02 11:52 | XCELERA ---
[id number]\[id number]___[id number]
[2025-06-02] MEDS: DRONEDARONE HCL 400 MG TAB PO SCH (18:10)
[2025-06-02] MEDS ORDERED: DRONEDARONE HCL 400 MG TAB PO SCH (21:00)
[2025-06-03] MEDS: COUGH DROP (SUGAR FREE) LOZ 24 LOZ/1 BOX BUCCAL PRN (06:32)
[2025-06-03 06:59] LABS: Anion Gap 8.0 (3-11); Blood Urea Nitrogen 22.0 mg/dl (6-23); Calcium 9.5 mg/dl (8.6-10.3); Carbon Dioxide 27.0 mmol/L (21-32); Chloride 105.0 mmol/L (98-107); Creatinine Clr Calc Pharmacy 76.3 ml/min; Glucose 116.0 mg/dl (70-99(Fasting)); Magnesium 2.2 mg/dl (1.7-2.4); Potassium 4.6 mmol/L (3.5-5.1); Sodium 140.0 mmol/L (136-145)
[2025-06-03] MEDS: LOSARTAN POTASSIUM 25 MG TAB PO SCH (08:19)
--- NOTE | 2025-06-03 10:01 | Electrocardiogram Report ---
Test Reason : Blood Pressure : */* mmHG Vent. Rate : 97 BPM Atrial Rate : 326 BPM P-R Int : * ms QRS Dur : 78 ms QT Int : 342 ms P-R-T Axes : * -9 64 degrees QTcB Int : 434 ms Atrial fibrillation converting to NSR Otherwise normal ECG When compared with ECG of 01-Jun-2025 14:12, Atrial fibrillation now present Confirmed by Amol Choi ([id number]) on 06/03/2025 10:00:48 AM Referred By: Gabriela Hunter Confirmed By: Amol Choi
--- NOTE | 2025-06-03 16:12 | Cardiology Progress Note ---
Date of Service June 03, 2025 Assessment & Plan (1) Paroxysmal atrial fibrillation with conversion pauses: (2) Tachy-ed syndrome: (3) Hypertension: (4) Dyslipidemia: (5) Family history of ischemic heart disease: (6) Suspected sleep apnea: Plan 75-year-old female admitted to [facility] on June 01, 2025 with symptomatic paroxysmal atrial flutter/fibrillation with rapid ventricular response, telemetry revealing paroxysmal atrial flutter/fibrillation with conversion pa uses up to 4 seconds in duration. Paroxysmal atrial fibrillation, Tachy-Ed Syndrome, and options of management discussed with patient notably adverse to pacemaker implantation. [id number] Score at least 4 points. PAF with RVR -> NSR HTN - uncontrolled -> better, controlled s/p mechanical fall HLD Obesity Sleep Apnea Recommendation: Eliquis 5mg po bid continue Multaq continue Losartan Cont statin ECHO - no WMA, Normal LVEF, Gd I LVDD adjust anti-HTN meds keeping systolic BP between 100-140 mmHg keep patient euvolemic DVT prophylaxis keep LE elevated when sitting salt restriction counseling stable from cardiac standpoint f/u with cardiology post discharge Admission and Anticipated Discharge Date Admission Date: June 02, 2025 Subjective Patient on exam is lying in bed in NAD; no c/o cp, sob, palpitations, dizziness, LOC Tele - sinus rhythm Review of Systems Review of Systems: as per HPI Physical Exam Physical Exam: General: A&Ox3. NAD. Elevated BMI HENT: Normocephalic. Atraumatic. Eyes: PER. Conjunctiva pink, sclera clear. Neck: No carotid bruits. No JVD. No HJR. Heart: Regular at 76 bpm. Grade II/ systolic ejection murmur. No diastolic murmur. Lungs: Clear to auscultation. No wheeze. Abdomen: +BS. Soft. Nontender. No masses or organomegaly. Extremities: Mild edema. No clubbing. No cyanosis. Limited neurological examination is without focal deficits. Pulses: Posterior tibial=2/4. Results & Data Vital Signs (Past 12 Hours) Vital Signs Vital Signs Temp 36.7 C 06/03/25 12:47 Pulse 73 06/03/25 14:42 Resp 17 06/03/25 12:47 BP 129/79 06/03/25 12:47 Pulse Ox 97 06/03/25 12:47 O2 Del Method Room Air 06/03/25 12:47 Intake & Output 06/02/25 06/03/25 06/03/25 18:59 06:59 18:59 Intake Total 428.75 / 728.75 300 / 728.75 Output Total 330 / 830 500 / 830 600 / 600 Balance 98.75 / -101.25 -200 / -101.25 -600 / -600 Weight 93.8 kg Intake: IV 108.75 / 108.75 dilTIAZem HCL 125 mg In 108.75 / 108.75 Dextrose 5% 100 ml @ 5 MG/HR 5 mls/hr IV .Q24H [facility] Rx#: [id number] Oral 320 / 620 300 / 620 Output: Urine 330 / 830 500 / 830 600 / 600 Other: # Unmeasured Voids 1 Weight Measurement Method Standing Scale Temp Pulse Pulse Resp BP Pulse Ox O2 Del Method 06/03/25 14:42 73 06/03/25 12:47 36.7 C 68 17 129/79 97 Room Air 06/03/25 09:46 126/81 06/03/25 08:13 36.6 C 75 18 176/71 H 95 Room Air 06/03/25 08:00 67 06/03/25 08:00 Room Air Laboratory Results Laboratory Results WBC 7.37 K/ul (4.8-10.8) 06/02/25 05:55 RBC 4.68 M/uL (4.20-5.40) 06/02/25 05:55 Hgb 13.5 g/dL (12.0-16.0) 06/02/25 05:55 Hct 41.8 % (37.0-47.0) 06/02/25 05:55 MCV 89.3 fL (80.0-100.0) 06/02/25 05:55 MCH 28.8 pg (25.0-34.0) 06/02/25 05:55 MCHC 32.3 g/dL (32.0-36.0) 06/02/25 05:55 RDW Std Deviation 43.4 fL (36.4-46.3) 06/02/25 05:55 RDW Coeff of Adriano 13.3 % (11.5-14.5) 06/02/25 05:55 Plt Count 277 K/uL (130-400) 06/02/25 05:55 MPV 9.5 fL (9.4-12.4) 06/02/25 05:55 Immature Gran % (Auto) 0.5 % 06/01/25 14:30 Neut % (Auto) 61.1 % 06/01/25 14:30 Lymph % (Auto) 27.5 % 06/01/25 14:30 Spink % (Auto) 8.2 % 06/01/25 14:30 Eos % (Auto) 2.2 % 06/01/25 14:30 Baso % (Auto) 0.5 % 06/01/25 14:30 Neut # (Auto) 5.24 K/uL (1.40-6.50) 06/01/25 14:30 Lymph # (Auto) 2.36 K/uL (1.20-3.40) 06/01/25 14:30 Spink # (Auto) 0.70 K/uL (0.11-0.59) H 06/01/25 14:30 Eos # (Auto) 0.19 K/uL (0.00-0.50) 06/01/25 14:30 Baso # (Auto) 0.04 K/uL (0.00-0.20) 06/01/25 14:30 Immature Gran # (Auto) 0.04 K/uL (0.01-0.20) 06/01/25 14:30 Sodium 140 mmol/L (136-145) 06/03/25 05:59 Potassium 4.6 mmol/L (3.5-5.1) 06/03/25 05:59 Chloride 105 mmol/L (98-107) 06/03/25 05:59 Carbon Dioxide 27 mmol/L (21-32) 06/03/25 05:59 Anion Gap 8 (3-11) 06/03/25 05:59 BUN 22 mg/dl (6-23) 06/03/25 05:59 Creatinine 0.71 mg/dl (0.6-1.2) 06/03/25 05:59 Est Cr Clr Drug Dosing 76.3 ml/min 06/03/25 05:59 eGFR 89.17 06/03/25 05:59 BUN/Creatinine Ratio 31.0 (10-20) H 06/03/25 05:59 Glucose 116 mg/dl (70-99(Fasting)) H 06/03/25 05:59 Estimat Average Glucose 128 mg/dl 06/01/25 Unknown Hemoglobin A1c 6.1 % (4.5-5.6) H 06/01/25 Unknown Calcium 9.5 mg/dl (8.6-10.3) 06/03/25 05:59 Magnesium 2.2 mg/dl (1.7-2.4) 06/03/25 05:59 Total Bilirubin 0.3 mg/dl (0.2-1.0) 06/01/25 14:30 AST 17 U/L (13-39) 06/01/25 14:30 ALT 13 U/L (7-52) 06/01/25 14:30 Alkaline Phosphatase 62 U/L (34-104) 06/01/25 14:30 Troponin I High Sens 10.9 pg/ml (0-14) 06/01/25 14:30 Total Protein 7.4 gm/dl (6.0-8.3) 06/01/25 14:30 Albumin 4.0 gm/dl (3.4-5.0) 06/01/25 14:30 Globulin 3.4 gm/dl (2.5-4.0) 06/01/25 14:30 Albumin/Globulin Ratio 1.2 (0.9-2) 06/01/25 14:30 Triglycerides 182 mg/dl (0-150) H 06/02/25 05:55 Cholesterol 166 mg/dl (0-200) 06/02/25 05:55 LDL Cholesterol, Calc 79 mg/dl 06/02/25 05:55 VLDL Cholesterol, Calc 36 mg/dl (0-30) H 06/02/25 05:55 HDL Cholesterol 51 mg/dl 06/02/25 05:55 Cholesterol/HDL Ratio 3.3 (0-5) 06/02/25 05:55 Lipase 17 U/L (11-82) 06/01/25 14:30 TSH 1.097 uIu/ml (0.300-4.500) 06/01/25 14:30 Impressions Chest X-Ray 06/01/25 14:06 SINGLE VIEW CHEST CLINICAL HISTORY: Chest pain FINDINGS: An AP, portable, upright chest radiograph is compared to study dated 01/07/2023. The heart is enlarged noting atherosclerotic calcification of the thoracic aorta. The pulmonary vasculature is noncongested. Chronic interstitial thickening similar to previous. There is mild bibasilar atelectasis. The lungs and pleural spaces are otherwise clear. No pneumothorax is seen. The skeletal structures are osteopenic. Degenerative change and scoliosis is noted in the spine. The bony thorax is grossly intact. IMPRESSION: Cardiomegaly with no active disease in the chest. ACT 112: Negative or not required by law. Electronically signed by: Darvin Yost M.D. 06/01/2025 3:[address] 06/01/25 14:18 CT SCAN OF THE BRAIN WITHOUT IV CONTRAST CLINICAL HISTORY: Headache. Falls. COMPARISON STUDY: None. TECHNIQUE: Unenhanced axial CT scan of the brain was performed from the vertex to the skull base. A dose lowering technique was utilized adhering to the principles of ALARA. CT DOSE: 547.75 mGy.cm FINDINGS: Brain parenchyma: No acute intracranial hemorrhage, midline shift or mass effect is present. Rouse-white matter differentiation is preserved. There are no extra- axial fluid collections. There are no findings to suggest acute dural sinus thrombosis or acute territorial infarct. White matter hypodensity suggests small vessel disease. Ventricles, sulci, cisterns: There is no hydrocephalus. The basal cisterns are patent. Calvarium: There are no calvarial fractures. Sinuses and mastoids: The visualized paranasal sinuses are clear. The mastoid air cells are well pneumatized. Orbits: The bony orbits are grossly intact. IMPRESSION: 1. No acute intracranial findings. 2. No calvarial fractures. ACT 112: Negative or not required by law. Electronically signed by: Emilio Flores M.D. 06/01/2025 3:30 PM Shoulder X-Ray 06/01/25 14:18 XR shoulder RT min 2V routine CLINICAL HISTORY: Right shoulder pain following fall. COMPARISON: None FINDINGS: Alignment of the right shoulder is anatomic. There are no acute fractures. Moderate degenerative changes within the acromioclavicular joint are noted with subacromial spurring. There is minimal spurring of the greater tuberosity. There is mild osteophytosis of the glenohumeral joint. IMPRESSION: No fracture or dislocation within the right shoulder. ACT 112: Negative or not required by law. Electronically signed by: Emilio Flores M.D. 06/01/2025 2:53 PM Diagnostic Findings Comprehensive Metabolic Panel 06/03/25 Range/Units 05:59 Sodium 140 (136-145) mmol/L Potassium 4.6 (3.5-5.1) mmol/L Chloride 105 (98-107) mmol/L Carbon Dioxide 27 (21-32) mmol/L BUN 22 (6-23) mg/dl Creatinine 0.71 (0.6-1.2) mg/dl Glucose 116 H (70-99(Fasting)) mg/dl Calcium 9.5 (8.6-10.3) mg/dl Intake and Output 06/03/25 06/03/25 06/03/25 06:59 14:59 22:59 Intake Total 300 / 728.75 Output Total 500 / 830 600 / 600 Balance -200 / -101.25 -600 / -600 Intake: Oral 300 / 620 Output: Urine 500 / 830 600 / 600 Other: Weight 93.8 kg Weight Measurement Method Standing Scale Patient Weight 06/04/25 06:59 Weight 93.8 kg Medications Administered Home Medications Medication Instructions Recorded Confirmed Last Taken apixaban 5 mg tablet (Eliquis) 5 mg PO BID #60 tabs 06/01/25 06/01/25 Unknown diltiazem HCl 30 mg tablet 30 mg PO Q6H #90 tabs 06/01/25 06/01/25 Unknown (Cardizem) nabumetone 500 mg tablet 500 mg PO BID PRN Pain 06/01/25 06/01/25 Unknown rosuvastatin 20 mg tablet 20 mg PO HS 06/01/25 06/01/25 Unknown Active Medications Generic Name Dose Route Start Last Admin Trade Name Freq PRN Reason Stop Dose Admin Acetaminophen 650 mg 06/01/25 19:40 06/03/25 15:31 Acetaminophen 325 Mg Tab PO 07/01/25 19:39 650 mg Q4H PRN Administration Pain or Fever Apixaban 5 mg 06/01/25 21:00 06/03/25 08:19 Apixaban 5 Mg Tablet PO 07/01/25 20:59 5 mg BID [facility] Administration Diclofenac Sodium 2 gm 06/01/25 22:53 06/03/25 15:33 Diclofenac Sod 1% Gel 100 Gm Tube EXT 07/01/25 22:59 2 gm BID PRN Administration shoulder pain Protocol Dronedarone 400 mg 06/02/25 17:28 06/03/25 08:19 Dronedarone Hcl 400 Mg Tab PO 07/02/25 17:27 400 mg BID [facility] Administration Losartan Potassium 25 mg 06/03/25 09:00 06/03/25 08:19 Losartan Potassium 25 Mg Tab PO 07/03/25 08:59 25 mg QAM [facility] Administration Menthol 1 graham 06/03/25 06:17 06/03/25 06:32 Cough Drop (Sugar Free) Graham 24 Graham/1 Box BUCCAL 07/03/25 06:16 1 graham Q2H PRN Administration Sore Throat Rosuvastatin Calcium 20 mg 06/01/25 21:00 06/02/25 21:54 Rosuvastatin Calcium 20 Mg Tab PO 07/01/25 20:59 20 mg HS [facility] Administration PG Care Time/CCT Total # of Minutes Spent Total Time Spent with Patient: Total time spent is greater than 50% in coordination of care (as documented) at patient's floor/unit and/or counseling patient: Coding Level of Care Code 03914 SUB INP/OBS CARE 3/50MIN Diagnoses Paroxysmal atrial fibrillation with conversion pauses I48.0; I49.5 Tachy-ed syndrome I49.5 Hypertension I10 Dyslipidemia E78.5 Family history of ischemic heart disease Z82.49 Suspected sleep apnea R29.818
--- NOTE | 2025-06-03 16:37 | Hospitalist Progress Note ---
Date of Service June 03, 2025 Assessment & Plan (1) New onset atrial fibrillation: (2) Atrial fibrillation with rapid ventricular response: (3) Sinus pause: (4) Tachy-delia syndrome: Plan Patient is a 75-year-old female with past medical history significant for HTN, prediabetes, HLD, mild tricuspid regurgitation, microalbuminuria, chronic neck and back pain and depression who was brought into the ED via EMS from her PCP's office on 06/01/2025 after she was found to be in new-onset Afib with RVR. New-onset Afib with RVR with occasional pauses and tachybradycardia syndrome Referred by PCP for new onset A fib with RVR at office EKG in ED revealed NSR after 15mg IV Cardizem with EMS Labs unremarkable, CXR negative Received Eliquis and oral Cardizem in ED Converted back to Afib with rates in 160s Started on Cardizem drip-> to be discontinued and oral antiarrhythmic therapy to start per Cardiology TTE revealed EF 55-60%, grade 1 diastolic dysfunction, mild AR, mild TR Continue Eliquis Patient will need outpatient electrophysiology and ALICIA evals Started on Multaq and the patient seems to be tolerating it Heart rate is controlled and blood pressure seems to be controlled on current medications Will observe her overnight and likely discharge tomorrow morning Hyperlipidemia Chol 166, LDL 79, HDL 51, TG 182 Continue rosuvastatin Prediabetes A1C 6.1% BSG checks ACHS DVT Prophylaxis: on Eliquis Code Status: FULL CODE PCP: Gabriela Hunter Disposition: dc to home when medically ready I spent a total of 33 minutes examining the patient, reviewing the test results and discussion with the patient and also planning care. Dr Scar Gomez Admission and Anticipated Discharge Date Admission Date: June 02, 2025 Subjective 06/03/2025 The patient was seen and examined in telemetry unit She has been feeling better noted to have high blood pressure earlier today No more arrhythmias and denies any other significant symptoms Review of Systems Constitutional: All systems reviewed and are unremarkable except as noted below Physical Exam Physical Exam: On examination lying in bed without any acute distress Hemodynamically stable with blood pressure at 147/80 and heart rate 59 irregularly irregular Chestclear with minimal bibasilar rales HeartS1-S2, irregular with 2/6 ESM over precordium Abdomendistended, otherwise benign Extremitiestrace edema bilaterally more on the left CNSalert, awake and oriented x 3 and no focal sensory or motor deficit appreciated Results & Data Results & Data Vital Signs (Past 12 Hours) Vital Signs Temp Pulse Pulse Resp BP Pulse Ox O2 Del Method 06/03/25 14:42 73 06/03/25 12:47 36.7 C 68 17 129/79 97 Room Air 06/03/25 09:46 126/81 06/03/25 08:13 36.6 C 75 18 176/71 H 95 Room Air 06/03/25 08:00 67 06/03/25 08:00 Room Air Laboratory Results BMP 06/03/25 05:59 Sodium 140 Potassium 4.6 Chloride 105 Carbon Dioxide 27 BUN 22 Creatinine 0.71 Glucose 116 H Calcium 9.5 Medications Administered Current Inpatient Medications Acetaminophen (Acetaminophen 325 Mg Tab) 650 mg PO Q4H PRN PRN Reason: Pain or Fever Stop: 07/01/25 19:39 Last Admin: 06/03/25 15:31 Dose: 650 mg Apixaban (Apixaban 5 Mg Tablet) 5 mg PO BID [facility] Stop: 07/01/25 20:59 Last Admin: 06/03/25 08:19 Dose: 5 mg Diclofenac Sodium (Diclofenac Sod 1% Gel 100 Gm Tube) 2 gm EXT BID PRN; Protocol PRN Reason: shoulder pain Stop: 07/01/25 22:59 Last Admin: 06/03/25 15:33 Dose: 2 gm Dronedarone (Dronedarone Hcl 400 Mg Tab) 400 mg PO BID [facility] Stop: 07/02/25 17:27 Last Admin: 06/03/25 08:19 Dose: 400 mg Losartan Potassium (Losartan Potassium 25 Mg Tab) 25 mg PO QAM [facility] Stop: 07/03/25 08:59 Last Admin: 06/03/25 08:19 Dose: 25 mg Magnesium Hydroxide (Magnesium Hydroxide Susp 30 Ml Udc) 30 ml PO Q12H PRN PRN Reason: Constipation Stop: 07/01/25 19:39 Menthol (Cough Drop (Sugar Free) Graham 24 Graham/1 Box) 1 graham BUCCAL Q2H PRN PRN Reason: Sore Throat Stop: 07/03/25 06:16 Last Admin: 06/03/25 06:32 Dose: 1 graham Polyethylene Glycol (Polyethylene (Miralax) 17 Gm Pack) 17 gm PO DAILY PRN PRN Reason: Constipation Stop: 07/01/25 19:39 Rosuvastatin Calcium (Rosuvastatin Calcium 20 Mg Tab) 20 mg PO [facility] Stop: 07/01/25 20:59 Last Admin: 06/02/25 21:54 Dose: 20 mg
[2025-06-04 05:42] VITALS: RESP 18
[2025-06-04 06:45] LABS: Anion Gap 9.0 (3-11); Blood Urea Nitrogen 20.0 mg/dl (6-23); Calcium 9.3 mg/dl (8.6-10.3); Carbon Dioxide 24.0 mmol/L (21-32); Chloride 104.0 mmol/L (98-107); Creatinine Clr Calc Pharmacy 72.6 ml/min; Glucose 118.0 mg/dl (70-99(Fasting)); Magnesium 2.0 mg/dl (1.7-2.4); Potassium 4.2 mmol/L (3.5-5.1); Sodium 137.0 mmol/L (136-145)
--- NOTE | 2025-06-04 09:28 | Cardiology Progress Note ---
Date of Service June 04, 2025 Assessment & Plan (1) Paroxysmal atrial fibrillation with conversion pauses: (2) Tachy-ed syndrome: (3) Hypertension: (4) Dyslipidemia: (5) Family history of ischemic heart disease: (6) Suspected sleep apnea: (7) New onset atrial fibrillation: (8) Atrial fibrillation with rapid ventricular response: (9) Sinus pause: Plan 75-year-old female admitted to [facility] on June 01, 2025 with symptomatic paroxysmal atrial flutter/fibrillation with rapid ventricular response, telemetry revealing paroxysmal atrial flutter/fibrillation with conversion pauses up to 4 seconds in duration. Paroxysmal atrial fibrillation, Tachy-Ed Syndrome, and options of management discussed with patient notably adverse to pacemaker implantation. [id number] Score at least 4 points. PAF with RVR -> NSR HTN - uncontrolled -> better, controlled s/p mechanical fall HLD Obesity Sleep Apnea Recommendation: Eliquis 5mg po bid continue Multaq increased Losartan to BID Cont statin ECHO - no WMA, Normal LVEF, Gd I LVDD adjust anti-HTN meds keeping systolic BP between 100-140 mmHg keep LE elevated when sitting salt restriction counseling stable from cardiac standpoint f/u with cardiology post discharge Admission and Anticipated Discharge Date Admission Date: June 02, 2025 Supervising Physician Co-Signing Physician Notes Patient seen and examined. Past medical history, surgical history, social history and family history have been reviewed. The medical record and all the above studies have been reviewed. Case DW BRAULIO including management. PAF with RVR -> NSR HTN - uncontrolled -> better s/p mechanical fall HLD Obesity Sleep Apnea Recommendation: Eliquis 5mg po bid Start Multaq DC IV cardizem start Losartan Cont statin correct and f/u electrolytes f/u renal function ECHO - no WMA, Normal LVEF, Gd I LVDD adjust anti-HTN meds keeping systolic BP between 100-140 mmHg keep patient euvolemic DVT prophylaxis keep LE elevated when sitting salt restriction counseling Subjective Patient on exam is lying in bed in NAD; no c/o cp, sob, palpitations Tele - sinus rhythm Review of Systems Review of Systems: as per HPI Physical Exam Physical Exam: General: A&Ox3. NAD. Elevated BMI HENT: Normocephalic. Atraumatic. Eyes: PER. Conjunctiva pink, sclera clear. Neck: No carotid bruits. No JVD. No HJR. Heart: Regular at 76 bpm. Grade II/ systolic ejection murmur. No diastolic murmur. Lungs: Clear to auscultation. No wheeze. Abdomen: +BS. Soft. Nontender. No masses or organomegaly. Extremities: Mild edema. No clubbing. No cyanosis. Limited neurological examination is without focal deficits. Pulses: Posterior tibial=2/4. Results & Data Vital Signs (Past 12 Hours) Vital Signs Vital Signs Temp 36.9 C 06/04/25 12:30 Pulse 62 06/04/25 12:30 Resp 18 06/04/25 12:30 BP 133/94 06/04/25 12:30 Pulse Ox 95 06/04/25 12:30 O2 Del Method Room Air 06/04/25 11:31 Intake & Output 06/03/25 06/04/25 06/04/25 18:59 06:59 18:59 Intake Total 880 / 980 100 / 980 Output Total 600 / 600 Balance 280 / 380 100 / 380 Weight 93.8 kg 93.7 kg 93.7 kg Intake: Oral 880 / 980 100 / 980 Output: Urine 600 / 600 Other: Other Intake Source SIPS # Unmeasured Voids 2 1 Weight Measurement Method Standing Scale Built in [facility] Temp Pulse Pulse Resp BP Pulse Ox O2 Del Method 06/04/25 07:45 36.5 C 65 18 167/80 H 97 Room Air 06/04/25 03:32 36.6 C 61 18 170/69 H 95 Room Air 06/03/25 22:45 36.4 C L 61 16 155/76 H 96 Room Air 06/03/25 21:34 61 Laboratory Results Laboratory Results WBC 7.37 K/ul (4.8-10.8) 06/02/25 05:55 RBC 4.68 M/uL (4.20-5.40) 06/02/25 05:55 Hgb 13.5 g/dL (12.0-16.0) 06/02/25 05:55 Hct 41.8 % (37.0-47.0) 06/02/25 05:55 MCV 89.3 fL (80.0-100.0) 06/02/25 05:55 MCH 28.8 pg (25.0-34.0) 06/02/25 05:55 MCHC 32.3 g/dL (32.0-36.0) 06/02/25 05:55 RDW Std Deviation 43.4 fL (36.4-46.3) 06/02/25 05:55 RDW Coeff of Adriano 13.3 % (11.5-14.5) 06/02/25 05:55 Plt Count 277 K/uL (130-400) 06/02/25 05:55 MPV 9.5 fL (9.4-12.4) 06/02/25 05:55 Immature Gran % (Auto) 0.5 % 06/01/25 14:30 Neut % (Auto) 61.1 % 06/01/25 14:30 Lymph % (Auto) 27.5 % 06/01/25 14:30 Pitkin % (Auto) 8.2 % 06/01/25 14:30 Eos % (Auto) 2.2 % 06/01/25 14:30 Baso % (Auto) 0.5 % 06/01/25 14:30 Neut # (Auto) 5.24 K/uL (1.40-6.50) 06/01/25 14:30 Lymph # (Auto) 2.36 K/uL (1.20-3.40) 06/01/25 14:30 Pitkin # (Auto) 0.70 K/uL (0.11-0.59) H 06/01/25 14:30 Eos # (Auto) 0.19 K/uL (0.00-0.50) 06/01/25 14:30 Baso # (Auto) 0.04 K/uL (0.00-0.20) 06/01/25 14:30 Immature Gran # (Auto) 0.04 K/uL (0.01-0.20) 06/01/25 14:30 Sodium 137 mmol/L (136-145) 06/04/25 05:38 Potassium 4.2 mmol/L (3.5-5.1) 06/04/25 05:38 Chloride 104 mmol/L (98-107) 06/04/25 05:38 Carbon Dioxide 24 mmol/L (21-32) 06/04/25 05:38 Anion Gap 9 (3-11) 06/04/25 05:38 BUN 20 mg/dl (6-23) 06/04/25 05:38 Creatinine 0.74 mg/dl (0.6-1.2) 06/04/25 05:38 Est Cr Clr Drug Dosing 72.6 ml/min 06/04/25 05:38 eGFR 84.85 06/04/25 05:38 BUN/Creatinine Ratio 27.0 (10-20) H 06/04/25 05:38 Glucose 118 mg/dl (70-99(Fasting)) H 06/04/25 05:38 Estimat Average Glucose 128 mg/dl 06/01/25 Unknown Hemoglobin A1c 6.1 % (4.5-5.6) H 06/01/25 Unknown Calcium 9.3 mg/dl (8.6-10.3) 06/04/25 05:38 Magnesium 2.0 mg/dl (1.7-2.4) 06/04/25 05:38 Total Bilirubin 0.3 mg/dl (0.2-1.0) 06/01/25 14:30 AST 17 U/L (13-39) 06/01/25 14:30 ALT 13 U/L (7-52) 06/01/25 14:30 Alkaline Phosphatase 62 U/L (34-104) 06/01/25 14:30 Troponin I High Sens 10.9 pg/ml (0-14) 06/01/25 14:30 Total Protein 7.4 gm/dl (6.0-8.3) 06/01/25 14:30 Albumin 4.0 gm/dl (3.4-5.0) 06/01/25 14:30 Globulin 3.4 gm/dl (2.5-4.0) 06/01/25 14:30 Albumin/Globulin Ratio 1.2 (0.9-2) 06/01/25 14:30 Triglycerides 182 mg/dl (0-150) H 06/02/25 05:55 Cholesterol 166 mg/dl (0-200) 06/02/25 05:55 LDL Cholesterol, Calc 79 mg/dl 06/02/25 05:55 VLDL Cholesterol, Calc 36 mg/dl (0-30) H 06/02/25 05:55 HDL Cholesterol 51 mg/dl 06/02/25 05:55 Cholesterol/HDL Ratio 3.3 (0-5) 06/02/25 05:55 Lipase 17 U/L (11-82) 06/01/25 14:30 TSH 1.097 uIu/ml (0.300-4.500) 06/01/25 14:30 Impressions Chest X-Ray 06/01/25 14:06 SINGLE VIEW CHEST CLINICAL HISTORY: Chest pain FINDINGS: An AP, portable, upright chest radiograph is compared to study dated 01/07/2023. The heart is enlarged noting atherosclerotic calcification of the thoracic aorta. The pulmonary vasculature is noncongested. Chronic interstitial thickening similar to previous. There is mild bibasilar atelectasis. The lungs and pleural spaces are otherwise clear. No pneumothorax is seen. The skeletal structures are osteopenic. Degenerative change and scoliosis is noted in the spine. The bony thorax is grossly intact. IMPRESSION: Cardiomegaly with no active disease in the chest. ACT 112: Negative or not required by law. Electronically signed by: Darvin Yost M.D. 06/01/2025 3:[address] 06/01/25 14:18 CT SCAN OF THE BRAIN WITHOUT IV CONTRAST CLINICAL HISTORY: Headache. Falls. COMPARISON STUDY: None. TECHNIQUE: Unenhanced axial CT scan of the brain was performed from the vertex to the skull base. A dose lowering technique was utilized adhering to the principles of ALARA. CT DOSE: 547.75 mGy.cm FINDINGS: Brain parenchyma: No acute intracranial hemorrhage, midline shift or mass effect is present. Rouse-white matter differentiation is preserved. There are no extra- axial fluid collections. There are no findings to suggest acute dural sinus thrombosis or acute territorial infarct. White matter hypodensity suggests small vessel disease. Ventricles, sulci, cisterns: There is no hydrocephalus. The basal cisterns are patent. Calvarium: There are no calvarial fractures. Sinuses and mastoids: The visualized paranasal sinuses are clear. The mastoid air cells are well pneumatized. Orbits: The bony orbits are grossly intact. IMPRESSION: 1. No acute intracranial findings. 2. No calvarial fractures. ACT 112: Negative or not required by law. Electronically signed by: Emilio Flores M.D. 06/01/2025 3:30 PM Shoulder X-Ray 06/01/25 14:18 XR shoulder RT min 2V routine CLINICAL HISTORY: Right shoulder pain following fall. COMPARISON: None FINDINGS: Alignment of the right shoulder is anatomic. There are no acute fractures. Moderate degenerative changes within the acromioclavicular joint are noted with subacromial spurring. There is minimal spurring of the greater tuberosity. There is mild osteophytosis of the glenohumeral joint. IMPRESSION: No fracture or dislocation within the right shoulder. ACT 112: Negative or not required by law. Electronically signed by: Emilio Flores M.D. 06/01/2025 2:53 PM Diagnostic Findings Comprehensive Metabolic Panel 06/04/25 Range/Units 05:38 Sodium 137 (136-145) mmol/L Potassium 4.2 (3.5-5.1) mmol/L Chloride 104 (98-107) mmol/L Carbon Dioxide 24 (21-32) mmol/L BUN 20 (6-23) mg/dl Creatinine 0.74 (0.6-1.2) mg/dl Glucose 118 H (70-99(Fasting)) mg/dl Calcium 9.3 (8.6-10.3) mg/dl Intake and Output 06/03/25 06/04/25 06/04/25 22:59 06:59 14:59 Intake Total 980 / 980 Balance 980 / 380 Intake: Oral 980 / 980 Other: Other Intake Source SIPS # Unmeasured Voids 1 1 Weight 93.7 kg 93.7 kg Weight Measurement Method Built in [facility] Patient Weight 06/05/25 06:59 Weight 93.7 kg Medications Administered Home Medications Medication Instructions Recorded Confirmed Last Taken rosuvastatin 20 mg tablet 20 mg PO HS 06/01/25 06/01/25 Unknown dronedarone 400 mg tablet (Multaq) 400 mg PO BID #60 tabs 06/04/25 Unknown losartan 25 mg tablet 25 mg PO BID #60 tabs 06/04/25 Unknown PG Care Time/CCT Total # of Minutes Spent Total Time Spent with Patient: Total time spent is greater than 50% in coordination of care (as documented) at patient's floor/unit and/or counseling patient: Coding Level of Care Code 36320 SUB INP/OBS CARE 3/50MIN Diagnoses Paroxysmal atrial fibrillation with conversion pauses I48.0; I49.5 Tachy-ed syndrome I49.5 Hypertension I10 Dyslipidemia E78.5 Family history of ischemic heart disease Z82.49 Suspected sleep apnea R29.818 New onset atrial fibrillation I48.91 Atrial fibrillation with rapid ventricular response I48.91 Sinus pause I45.5
--- NOTE | 2025-06-04 11:12 | Hospitalist Progress Note ---
Date of Service June 04, 2025 Assessment & Plan (1) New onset atrial fibrillation: (2) Atrial fibrillation with rapid ventricular response: (3) Sinus pause: (4) Tachy-delia syndrome: Plan Patient is a 75-year-old female with past medical history significant for HTN, prediabetes, HLD, mild tricuspid regurgitation, microalbuminuria, chronic neck and back pain and depression who was brought into the ED via EMS from her PCP's office on 06/01/2025 after she was found to be in new-onset Afib with RVR. New-onset Afib with RVR with occasional pauses and tachybradycardia syndrome Referred by PCP for new onset A fib with RVR at office EKG in ED revealed NSR after 15mg IV Cardizem with EMS Labs unremarkable, CXR negative Received Eliquis and oral Cardizem in ED Converted back to Afib with rates in 160s Started on Cardizem drip-> to be discontinued and oral antiarrhythmic therapy to start per Cardiology TTE revealed EF 55-60%, grade 1 diastolic dysfunction, mild AR, mild TR Continue Eliquis Patient will need outpatient electrophysiology and ALICIA evals Started on Multaq and the patient seems to be tolerating it Heart rate is controlled and blood pressure seems to be controlled on current medications Will observe her overnight and likely discharge tomorrow morning She remains stable without any significant symptoms and no more arrhythmias and the heart rate is controlled She will be discharged home this afternoon Hyperlipidemia Chol 166, LDL 79, HDL 51, TG 182 Continue rosuvastatin Prediabetes A1C 6.1% BSG checks ACHS DVT Prophylaxis: on Eliquis Code Status: FULL CODE PCP: Gabriela Hunter Disposition: dc to home when medically ready I spent a total of 33 minutes examining the patient, reviewing the test results and discussion with the patient and also planning care. Dr Scar Gomez Admission and Anticipated Discharge Date Admission Date: June 02, 2025 Supervising Physician Co-Signing Physician Notes Patient seen and examined. Past medical history, surgical history, social history and family history have been reviewed. The medical record and all the above studies have been reviewed. Case DW BRAULIO including management. PAF with RVR -> NSR HTN - uncontrolled -> better s/p mechanical fall HLD Obesity Sleep Apnea Recommendation: Eliquis 5mg po bid Start Multaq DC IV cardizem start Losartan Cont statin correct and f/u electrolytes f/u renal function ECHO - no WMA, Normal LVEF, Gd I LVDD adjust anti-HTN meds keeping systolic BP between 100-140 mmHg keep patient euvolemic DVT prophylaxis keep LE elevated when sitting salt restriction counseling Subjective 06/03/2025 The patient was seen and examined in telemetry unit She has been feeling better noted to have high blood pressure earlier today No more arrhythmias and denies any other significant symptoms 06/04/2025 The patient was seen and examined in telemetry unit She has been stable without any more arrhythmias heart rate is controlled Blood pressure remains on the upper side at 167/80 Denies any other significant symptoms and will be discharged home this afternoon Review of Systems Review of Systems: All systems reviewed and are unremarkable except as noted below Physical Exam Physical Exam: On examination lying in bed without any acute distress Hemodynamically stable with blood pressure at 147/80 and heart rate 59 irregularly irregular Chestclear with minimal bibasilar rales HeartS1-S2, irregular with 2/6 ESM over precordium Abdomendistended, otherwise benign Extremitiestrace edema bilaterally more on the left CNSalert, awake and oriented x 3 and no focal sensory or motor deficit appreciated Results & Data Results & Data Vital Signs (Past 12 Hours) Vital Signs Temp Pulse Resp BP Pulse Ox O2 Del Method 06/04/25 07:45 36.5 C 65 18 167/80 H 97 Room Air 06/04/25 03:32 36.6 C 61 18 170/69 H 95 Room Air Laboratory Results [facility] 06/04/25 05:38 Sodium 137 Potassium 4.2 Chloride 104 Carbon Dioxide 24 BUN 20 Creatinine 0.74 Glucose 118 H Calcium 9.3 Hello Medications Administered Current Inpatient Medications Acetaminophen (Acetaminophen 325 Mg Tab) 650 mg PO Q4H PRN PRN Reason: Pain or Fever Stop: 07/01/25 19:39 Last Admin: 06/04/25 09:59 Dose: 650 mg Apixaban (Apixaban 5 Mg Tablet) 5 mg PO BID [facility] Stop: 07/01/25 20:59 Last Admin: 06/04/25 07:52 Dose: 5 mg Diclofenac Sodium (Diclofenac Sod 1% Gel 100 Gm Tube) 2 gm EXT BID PRN; Protocol PRN Reason: shoulder pain Stop: 07/01/25 22:59 Last Admin: 06/03/25 15:33 Dose: 2 gm Dronedarone (Dronedarone Hcl 400 Mg Tab) 400 mg PO BID [facility] Stop: 07/02/25 17:27 Last Admin: 06/04/25 07:51 Dose: 400 mg Losartan Potassium (Losartan Potassium 25 Mg Tab) 25 mg PO BID [facility] Stop: 07/04/25 20:59 Magnesium Hydroxide (Magnesium Hydroxide Susp 30 Ml Udc) 30 ml PO Q12H PRN PRN Reason: Constipation Stop: 07/01/25 19:39 Menthol (Cough Drop (Sugar Free) Graham 24 Graham/1 Box) 1 graham BUCCAL Q2H PRN PRN Reason: Sore Throat Stop: 07/03/25 06:16 Last Admin: 06/03/25 06:32 Dose: 1 graham Polyethylene Glycol (Polyethylene (Miralax) 17 Gm Pack) 17 gm PO DAILY PRN PRN Reason: Constipation Stop: 07/01/25 19:39 Rosuvastatin Calcium (Rosuvastatin Calcium 20 Mg Tab) 20 mg PO HS [facility] Stop: 07/01/25 20:59 Last Admin: 06/03/25 20:02 Dose: 20 m
[2025-06-04 12:08] VITALS: TEMP 98.4; O2SAT 95
[2025-06-04 12:32] VITALS: BP 133/94; PULSE 62
--- NOTE | 2025-06-04 17:59 | Discharge Summary ---
Date of Service June 04, 2025 Admission HPI Per Admitting Provider Patient is a 75-year-old female with past medical history significant for HTN, prediabetes, HLD, mild tricuspid regurgitation, microalbuminuria, chronic neck and back pain and depression who was brought into the ED via EMS from her PCP's office after she was found to be in new-onset Afib with RVR. Seen by PCP earlier today for annual wellness visit. Was found to be markedly hypertensive and tachycardic in the office with HR in the 150s. EKG was completed which revealed Afib with RVR. New-onset. Did sustain a fall with positive head strike on 05/21/25 after tripping over a bed frame. Admitted to feeling a bit shaky in the office however denied any palpitations or other cardiopulmonary complaints. S/p 15mg IV Cardizem en route to ED with successful conversion back into NSR. Was started on Eliquis in the ED and given 30mg po Cardizem. HR improved to the 60s-70s initially. Plan was for the patient to be discharged home on Eliquis and Cardizem; however, upon reevaluation for her discharge exam, the patient reverted back into Afib with HR in the 160s. As a result, our service was called to admit the patient for further management. At time of my evaluation, patient remains in Afib with variable HR between 100s- 160s. Hypertensive with BP in the 150s/110s. Patient admits to feeling somewhat shaky over the past couple of days. Denies any lightheadedness or dizziness. Does mention feeling some intermittent "fluttering" in her chest over the past few days as well. No reported chest pain or SOB. Denies any abdominal pain, N/V. No urinary or bowel habit changes. No recorded fevers. No known sick contacts; denies any chest congestion, runny nose or cough. Admission Exam Per Admitting Provider Physical Exam: General: Elderly F, NAD, sitting up in bed, A&Ox3, pleasant HEENT: Normocephalic, atraumatic, oropharynx normal Respiratory: Normal respiratory effort, CTAB Cardiovascular: Tachycardic rate, irregularly irregular rhythm, no BLE edema Abdomen/GI: Normal bowel sounds, soft, nontender to palpation in all quadrants Extremities/Musculoskeletal: No cyanosis or clubbing, extremities motor strength intact, moves all extremities Neurologic: No overt focal deficits, CN's II-XI not formally tested but appear grossly intact bilaterally Principal Diagnosis New onset atrial fibrillation with RVR Discharge Exam On examination lying in bed without any acute distress Hemodynamically stable with blood pressure at 147/80 and heart rate 59 irregularly irregular Chestclear with minimal bibasilar rales HeartS1-S2, irregular with 2/6 ESM over precordium Abdomendistended, otherwise benign Extremitiestrace edema bilaterally more on the left CNSalert, awake and oriented x 3 and no focal sensory or motor deficit appreciated Discharge Data Allergies Allergy/AdvReac Type Severity Reaction Status Date / Time No Known Allergies Allergy Mild Unverified 01/10/24 15:53 Consultations 06/01/25 16:29 Consult Cardiology Routine Ordered Studies 06/01/25 14:18 CT head/brain wo con Stat Hospital Course (1) New onset atrial fibrillation: (2) Atrial fibrillation with rapid ventricular response: (3) Sinus pause: (4) Tachy-delia syndrome: Plan Patient is a 75-year-old female with past medical history significant for HTN, prediabetes, HLD, mild tricuspid regurgitation, microalbuminuria, chronic neck and back pain and depression who was brought into the ED via EMS from her PCP's office on 06/01/2025 after she was found to be in new-onset Afib with RVR. New-onset Afib with RVR with occasional pauses and tachybradycardia syndrome Referred by PCP for new onset A fib with RVR at office EKG in ED revealed NSR after 15mg IV Cardizem with EMS Labs unremarkable, CXR negative Received Eliquis and oral Cardizem in ED Converted back to Afib with rates in 160s Started on Cardizem drip-> to be discontinued and oral antiarrhythmic therapy to start per Cardiology TTE revealed EF 55-60%, grade 1 diastolic dysfunction, mild AR, mild TR Continue Eliquis Patient will need outpatient electrophysiology and ALICIA evals Started on Multaq and the patient seems to be tolerating it Heart rate is controlled and blood pressure seems to be controlled on current medications Will observe her overnight and likely discharge tomorrow morning She remains stable without any significant symptoms and no more arrhythmias and the heart rate is controlled She will be discharged home this afternoon Hyperlipidemia Chol 166, LDL 79, HDL 51, TG 182 Continue rosuvastatin Prediabetes A1C 6.1% BSG checks ACHS DVT Prophylaxis: on Eliquis Code Status: FULL CODE PCP: Gabriela Hunter Disposition: dc to home when medically ready I spent a total of 33 minutes examining the patient, reviewing the test results and discussion with the patient and also planning care. Dr Scar Gomez Total Time Total Time Spent Total Time Spent (In Minutes): 35 Minutes Discharge Plan Discharge Items Patient Disposition: Home - Self-Care Reason For Visit: NEW ONSET AFIB WITH RVR Discharge Diagnosis: New onset atrial fibrillation with RVR Condition on Discharge: Good Activity: Resume your previous activity Non-emergency contact: Primary Care Provider Call non-emergency contact if: you have any medication questions and your symptoms worsen Follow-up/Referrals: Gabriela Hunter DO [Primary Care Provider] - 06/08/25 1:10 pm (Date & Time 06/08/2025 1:10 PM Provider: Gabriela Hunter DO [facility] ) Diet: Heart Healthy Addtl Attending Provider Instructions: Please take precautions to avoid falls Take your medications as advised and try not to miss any medicines given for the heart and blood thinner Do not take any NSAIDs like Motrin, naproxen, Advil etc. Keep appointments with a healthcare provider Pending Studies at Discharge: No Stand-Alone Forms: My [facility], Smoking Cessation Medications and DC Order Prescriptions: New losartan 25 mg Tablet 25 mg PO BID Qty: 60 0RF Multaq 400 mg Tablet 400 mg PO BID Qty: 60 0RF Continued rosuvastatin 20 mg tablet 20 mg PO HS Discontinued nabumetone 500 mg tablet 500 mg PO BID PRN (Reason: Pain) Discharge Orders: Discharge Order (Routine); Ordered 06/04/25 Ordered By: Andrae Dyer/Other Patient Handouts: Prediabetes, 5 Steps for Eating Healthier Admission Data Admit Date/Time: 06/02/25 13:55 Attending Provider: Andrae Gomez Admit Provider: Humble Jones Primary Care Provider: Gabriela Hunter Other Providers: Crispin Allen; Humble Jones Other Interventions: Discharge Summary Assessment (RN) Last Done: 06/04/25 12:30
[2025-06-04] MEDS ORDERED: LOSARTAN POTASSIUM 25 MG TAB PO SCH (21:00)
== END 2025-06-04 13:23 | disposition home or self-care (01) | DRG 310 ==
LOC: EDINP 14:04 → ED 14:04 → SUATTDRO 16:34 → 4W 20:28